=== PATIENT | female | born 1955 | race Caucasian/White ===

== ENCOUNTER 2016-08-28 09:09 | Emergency (ER) | payer OTHER ==
[2016-08-28] MEDS ORDERED: Pantoprazole Inj 40 MG in Normal Saline Flush 10 ML IVP ONE (09:25)
[2016-08-28] MEDS ORDERED: Sodium Chloride 0.9% 1,000 ML PRIMARY IV ONE (09:25)
[2016-08-28] MEDS ORDERED: Prochlorperazine Edisylate Inj 10mg/2ml vial IVP ONE (09:25)
[2016-08-28] MEDS ORDERED: NORMAL SALINE 10 ML SYRINGE FLUSH IVP PRN (09:25)
[2016-08-28] MEDS ORDERED: Belladon/PHENobarbital Elixir 10 ML, Lidocaine Viscous Liquid 2% 15 ML, Mag Hyd/Al Hyd/... PO ONE ×3 (09:26)
[2016-08-28 09:28] VITALS: RESP 12; TEMP 98.8
[2016-08-28 09:40] LABS: BASOPHILS # (AUTO) 0.07 10*3/UL; BASOPHILS % (AUTO) 1.3 % (0-1); EOSINOPHILS % (AUTO) 3.4 % (0-8); HEMATOCRIT 38.5 % (37.0-47.0); HEMOGLOBIN 13.5 g/dL (12.0-16.0); IMM GRAN % (AUTO) 0 % (0-5); IMM GRAN# (AUTO) 0 10*3/UL; LYMPHOCYTES # (AUTO) 1.17 10*3/uL; LYMPHOCYTES % (AUTO) 21.8 % (10-50); MEAN CORPUSCULAR HEMOGLOBIN 32.1 PG (27-31); MEAN CORPUSCULAR HGB CONC 35.1 g/dL (33-37); MEAN PLATELET VOLUME 10.3 FL (7.4-12.2); MONOCYTES # (AUTO) 0.33 10*3/UL (0.3-0.8); MONOCYTES % (AUTO) 6.2 % (5-15); NEUTROPHILS # (AUTO) 3.61 10*3/UL; NEUTROPHILS % (AUTO) 67.3 % (50-80); RDW COEFFICIENT OF VARIATION 12.1 % (11.5-14.5); WHITE BLOOD COUNT 5.36 10^3/uL (4.8-10.8)
[2016-08-28 09:43] LABS: PLATELET MORPHOLOGY COMMENT NORMAL MORPHOLOGY (NORM)
--- NOTE | 2016-08-28 10:04 | PDOC ---
Abdomen/Flank HPI - General Chief Complaint: Abdomen Pain Stated Complaint: right upper quad pain Date Seen by Provider: 08/28/16 Time Seen by Provider: 09:25 Source: POSITIVE: Patient, EMS Exam Limitations: POSITIVE: No limitations Nurse's Notes Reviewed & Considered: Yes - History of Present Illness Initial Comments: The patient is a 61-year-old female who is brought to the emergency department per EMS with complaints of severe abdominal pain. She has a history of recurrent evaluations for epigastric abdominal pain. She has undergone laparoscopic cholecystectomy several weeks ago secondary to biliary dyskinesia. She has however continued to have the same pain intermittently. She has been seen here in the emergency room 3 times since her surgery. She has undergone workup including ultrasound and 2 CT scans. Lab work and imaging has been unremarkable. She does have a history of previous gastritis and H. pylori per surgical note. The patient is noncompliant with medications at home. She did tell nursing staff that she ran out of pain medication 2 days ago. She states that she had onset of pain this morning associated with nausea and vomiting. She was given Zofran and Benadryl in route. She denies fever although she states she may have had some chills earlier. On arrival she is still having pain and is still nauseated although her nausea somewhat better. - Patient Home Medications Home Medications: Home Medications Lisinopril [Prinivil Tab] 40 mg PO DAILY #30 tab 06/28/16 oxyCODONE/APAP 7.5/325 Tab [Percocet 7.5/325 Tab] 1 each PO Q6H PRN #20 tablet 08/05/16 Dicyclomine HCl [Bentyl] 20 mg PO Q8H PRN #10 tablet 08/28/16 Pantoprazole Sodium [Protonix] 40 mg PO BID #60 tablet. 08/28/16 Promethazine HCl [Phenergan] 25 mg PO Q6H PRN #15 tab 08/28/16 - Patient Allergies Allergies/Adverse Reactions: Allergies Allergy/AdvReac Type Severity Reaction Status Date / Time No Known Allergies Allergy Verified 08/28/16 09:15 Past Medical History - heen HEENT History: Hard of Hearing, Dental Disorders, Dentures/Partials Cardiovascular History: Hypertension Additional Cardiovasular History: DOES NOT TAKE HER BLOOD PRESSURE MEDS REGULARLY. Pt reports took bp medication this am. Respiratory History: Denies History Gastrointestinal History: Diverticulitis, Gallbladder Disease Additional Gastrointestinal History: LAST EPISODE 2010. PT HAS BEEN IN ER WITH ABDOMINAL PAIN, N/V FREQUENTLY OVER PAST 2 MONTHS. GB OUT 08/01/16 Genitourinary History: Denies History Endocrine History: Type 2 Diabetes (oral) Additional Endocrine History: HX OF NOT TAKING MEDS Musculoskeletal History: Denies History Prosthesis or Implant: No Neurological History: Denies History Blood Disorders: Denies History Psychiatric History: Denies History History of Sexually Transmitted Diseases: No LMP: 12yrs Cancer History: Denies History In Past Year Been Physically Harmed or Verbally Threatened: No History of MDRO: No History of Other Communicable Diseases: No Tobacco Use: Never Smoker Alcohol Use: Occasionally Substance Use Type: None Previous Surgical History: Yes Type / Date of Surgery: TUBAL LIGATION. Michela Anesthesia Reactions: No Significant Family History: No pertinent family hx Past Medical History Reviewed: Reviewed - No Changes ROS - Limitations ROS Limitations: No Limitations Constitution: REPORTS: Chills. DENIES: Fever Cardiovascular: REPORTS: Blood Pressure Problem (She frequently has very high blood pressure and is noncompliant with blood pressure medication at home). DENIES: Chest Pain, Heart Palpitations, Edema Respiratory: REPORTS: Denies Resp Symptoms Neurological: REPORTS: Denies Neuro Symptoms Gastrointestinal: REPORTS: Abdominal Pain, Nausea, Vomitting, Constipation, Other (She reports poor appetite and reports that her pain worsens with attempts at eating). DENIES: Black Stools, Bloody Stools Genitourinary: REPORTS: Other (She reports decreased urination) Eyes: REPORTS: Denies Symptoms ENT: REPORTS: Denies Symptoms Skin: DENIES: Rash Abdominal/Flank Pain PE - General Appearance General Appearance: POSITIVE: Alert, Cooperative, No Acute Distress, Other (She is moaning in pain) - HEENT HEENT: POSITIVE: Head Inspection Nml, Eyes Inspection Nml, Ears Inspection Nml, Pharynx Inspect. Nml - Neck Neck: POSITIVE: Normal Inspection - Respiratory Respiratory: POSITIVE: No Respiratory Distress, Breath Sounds Normal - Cardiovascular Cardiovascular: POSITIVE: Regular Rate and Rhythm, Heart Sounds Normal Peripheral Pulses: Dorsalis-pedis (R): 2+, Dorsalis-pedis (L): 2+ - Abdomen Abdomen: Soft: (All Quadrants), Normal Bowel Sounds: (All Quadrants), No Guarding: (All Quadrants), No Rebound: (All Quadrants), No Palpabale Mass: (All Quadrants), No Distention: (All Quadrants) Additional Abdominal Details: She does have tenderness in the epigastric region without guarding or rebound tenderness - Skin Skin: POSITIVE: Intact, No Rash - Extremities Extremity: Normal ROM: (All Extremities), Normal Inspection: (All Extremities) Abdomen Progress - Results Reviewed by me Lab Results Reviewed: Yes Lab Results:: Laboratory Results 08/28/16 Range/Units 09:36 WBC 5.36 (4.8-10.8) 10^3/uL RBC 4.20 (4.20-5.40) 10^6/uL Hgb 13.5 (12.0-16.0) g/dL Hct 38.5 (37.0-47.0) % MCV 91.7 (81-99) FL MCH 32.1 H (27-31) PG MCHC 35.1 (33-37) g/dL RDW Std Deviation 39.3 (39-50) fL RDW Coeff of Mohini 12.1 (11.5-14.5) % Plt Count 319 (140-350) 10*3/uL MPV 10.3 (7.4-12.2) FL Immature Gran % (Auto) 0 (0-5) % Neut % (Auto) 67.3 (50-80) % Lymph % (Auto) 21.8 (10-50) % [place] % (Auto) 6.2 (5-15) % Eos % (Auto) 3.4 (0-8) % Baso % (Auto) 1.3 H (0-1) % Immature Gran # (Auto) 0 10*3/UL Neut # (Auto) 3.61 10*3/UL Lymph # (Auto) 1.17 10*3/uL [place] # (Auto) 0.33 (0.3-0.8) 10*3/UL Eos # (Auto) 0.18 10*3/UL Baso # (Auto) 0.07 10*3/UL WBC Morphology Comment Normal morphology (NORM) Plt Morphology Comment Normal morphology (NORM) RBC Morph Comment Normal morphology (NORM) Sodium 133 L (135-145) meq/L Potassium 3.7 L (3.8-5.2) meq/L Chloride 99 (98-112) meq/L Carbon Dioxide 21 L (23-33) meq/L Anion Gap 13 (5-20) BUN 12 (7-22) mg/dL Creatinine 1.2 (0.50-1.20) mg/dL Estimated GFR 46 (>60 ml/min/1.73m(2)) BUN/Creatinine Ratio 10.00 (6-20) Glucose 153 H (78-110) mg/dL Calculated Osmolality 278.0 (267-292) mOsm/kg Calcium 9.5 (8.7-10.7) mg/dL Total Bilirubin 1.5 H (0.3-1.2) mg/dL AST 15 (8-39) IU/L ALT 41 (9-52) IU/L Alkaline Phosphatase 75 (38-126) IU/L C-Reactive Protein 0.5 (0.0-0.9) mg/dL Total Protein 6.7 (6.1-8.0) g/dL Albumin 3.8 (3.5-4.8) g/dL Globulin 2.8 (2.50-4.10) g/dL Albumin/Globulin Ratio 1.30 (1.3-2.0) mg/g Amylase < 30 L (30-110) U/L Lipase 96 (23-300) IU/L - Patient's Progress MDM / ED Course: The patient reported continued nausea and epigastric pain on arrival. She has had multiple evaluations for this issue including several recent CT scans and ultrasound. She also recently underwent laparoscopic cholecystectomy. She does have a history of H. pylori gastritis. In addition there has been some concern about narcotic usage. Here the patient was given a GI cocktail, 5 mg of Compazine IV and Protonix 40 mg IV. Her pain was significantly improved and she was resting comfortably. Results of current lab work were discussed and are unremarkable. The patient has had CT scan of the abdomen 2 as well as ultrasound since her laparoscopic cholecystectomy and no further imaging was ordered today as her labs are normal and her clinical presentation is similar to the past presentations. At this point her pain may be secondary to gastritis or ulcer. She does have a history of H. pylori. She is advised to have a stool test for H. pylori antigen to reevaluate this. In addition she was started on Protonix 40 mg twice a day. She has been prescribed antiacid medications previously however it is unclear if she is taking these regularly, she did not list this as a medication she is currently taking. In addition she was given Bentyl as needed for pain/spasm and Phenergan as needed for nausea. She was advised that it would be advisable not to continue any narcotic pain medications as this may be contributing to her symptoms as well. She is advised return to the emergency room she develops increased pain or vomiting, fever, any worsening or change in symptoms. She'll follow-up with primary care in 2-3 days. She was advised to obtain a medication office workforce planner to help keep track of her home medications. - Consult Counseled: POSITIVE: Patient, RE: Lab Results, RE: DX, RE: Need for F/U Patient Care Time - Estimated PCT Patient Care Time (In Minutes): 35 Vital Signs - Recent Vital Signs Vital Signs: Vital Signs (Last 8 hours) Temp Pulse Resp BP Pulse Ox 08/28/16 09:22 98.8 F 90 12 189/103 97 - VS Reviewed Vital Signs Reviewed: Yes Discharge Clinical Impression: Epigastric abdominal pain, Nausea and vomiting, Gastritis Condition: Stable Prescriptions / Orders: Dicyclomine HCl [Bentyl] 20 mg PO Q8H PRN #10 tablet PRN Reason: Abdominal Cramps / Pain Promethazine HCl [Phenergan] 25 mg PO Q6H PRN #15 tab PRN Reason: Nausea / Vomiting Pantoprazole Sodium [Protonix] 40 mg PO BID #60 tablet. Patient Instructions Given at Discharge: Gastritis (ED), Acute Nausea and Vomiting (ED), Acute Abdominal Pain (ED) Additional Instructions: Protonix 40 mg twice a day. Bentyl 20 mg every 6-8 hours as needed for abdominal pain/spasm. Phenergan 25 mg every 6 hours as needed for nausea or vomiting. Continue your blood pressure and diabetes medications as prescribed. It is important to take all of your medications as recommended. Recommend obtaining a medication office workforce planner to help organize her medications. A stool study has been ordered to test for H. pylori which is an infection in your stomach that you have had previously that can cause ulcers and abdominal pain. This will need to be taken to the lab. Return to the emergency room if increased vomiting or dehydration, increased abdominal pain, fever, any worsening or change in symptoms. Recommend follow-up with primary care in 2-3 days. Follow Up With: FIGUEROA FAJARDO [Primary Care Provider] -
[2016-08-28 10:16] LABS: ASPARTATE AMINO TRANSFERASE 15 IU/L (8-39); BILIRUBIN,TOTAL 1.5 mg/dL (0.3-1.2); BLOOD UREA NITROGEN 12 mg/dL (7-22); C-REACTIVE PROTEIN 0.5 mg/dL (0.0-0.9); CALCIUM 9.5 mg/dL (8.7-10.7); CHLORIDE 99 meq/L (98-112); CREATININE 1.2 mg/dL (0.50-1.20); EST GLOMERULAR FILTRATION 46 (>60 ml/min/1.73m(2)); GLUCOSE 153 mg/dL (78-110); POTASSIUM 3.7 meq/L (3.8-5.2); SODIUM 133 meq/L (135-145); TOTAL PROTEIN 6.7 g/dL (6.1-8.0)
[2016-08-28 10:18] LABS: AMYLASE < 30 U/L (30-110)
== END 2016-08-28 11:45 | disposition home or self-care (01) ==
LOC: ER 09:09
DX: K29.70 Gastritis, unspecified, without bleeding (principal); R10.13 Epigastric pain; R11.2 Nausea with vomiting, unspecified
CPT/HCPCS: 36415; 80053; 82150; 83690; 85025; 86140; 96374; 96375; 99283; J0780; J3490

== ENCOUNTER 2016-09-30 08:30 | Emergency (ER) | payer OTHER ==
[2016-09-30] MEDS ORDERED: Pantoprazole Inj 40 MG in Normal Saline Flush 10 ML IVP ONE (08:59)
[2016-09-30] MEDS ORDERED: NORMAL SALINE 10 ML SYRINGE FLUSH IVP PRN (08:59)
[2016-09-30] MEDS ORDERED: Sodium Chloride 0.9% 1,000 ML PRIMARY IV ONE (08:59)
[2016-09-30] MEDS ORDERED: LISINOPRIL 10 MG TABLET PO ONE (09:02)
[2016-09-30 09:09] LABS: IMM GRAN % (AUTO) 0.1 % (0-5); IMM GRAN# (AUTO) 0.01 10*3/UL; RDW COEFFICIENT OF VARIATION 13.1 % (11.5-14.5)
[2016-09-30 09:11] LABS: BASOPHILS # (AUTO) 0.11 10*3/UL; BASOPHILS % (AUTO) 1.6 % (0-1); HEMATOCRIT 42.3 % (37.0-47.0); HEMOGLOBIN 15.2 g/dL (12.0-16.0); LYMPHOCYTES % (AUTO) 20.8 % (10-50); MEAN CORPUSCULAR HEMOGLOBIN 32.9 PG (27-31); MEAN CORPUSCULAR HGB CONC 35.9 g/dL (33-37); MEAN PLATELET VOLUME 11.3 FL (7.4-12.2); MONOCYTES # (AUTO) 0.32 10*3/UL (0.3-0.8); MONOCYTES % (AUTO) 4.8 % (5-15); NEUTROPHILS # (AUTO) 4.68 10*3/UL; NEUTROPHILS % (AUTO) 69.7 % (50-80); RED BLOOD COUNT 4.62 10^6/uL (4.20-5.40); WHITE BLOOD COUNT 6.72 10^3/uL (4.8-10.8)
[2016-09-30 09:14] LABS: PLATELET MORPHOLOGY COMMENT NORMAL MORPHOLOGY (NORM)
[2016-09-30 09:17] LABS: BILIRUBIN,TOTAL 1.1 mg/dL (0.3-1.2); BUN/CREATININE RATIO 9.23 (6-20); C-REACTIVE PROTEIN 0.8 mg/dL (0.0-0.9); CALCIUM 9.7 mg/dL (8.7-10.7); CREATININE 1.3 mg/dL (0.50-1.20); MAGNESIUM 1.6 mg/dL (1.6-2.4); POTASSIUM 3.3 meq/L (3.8-5.2); TOTAL PROTEIN 7.4 g/dL (6.1-8.0)
--- NOTE | 2016-09-30 09:19 | PDOC ---
Abdomen/Flank HPI - General Chief Complaint: Abdomen Pain Stated Complaint: ABDOMINAL PAIN, NAUSEA, VOMITING x2 DAYS Date Seen by Provider: 09/30/16 Time Seen by Provider: 08:50 Source: POSITIVE: Patient, EMS Exam Limitations: POSITIVE: No limitations Nurse's Notes Reviewed & Considered: Yes EMS Report Reviewed & Considered: Verbal - History of Present Illness Initial Comments: The patient is a 61-year-old female who presents to the emergency department with complaints of abdominal pain and cramping. She has a history of intermittent abdominal pain and cramping which has been ongoing for at least the past 6 months. She has had multiple evaluations and underwent cholecystectomy for possible gallbladder dysfunction. She states that this morning she had onset of increased abdominal pain and cramping. She reports that recently she has had hard stool and increased pain with trying to have a bowel movement. She denies any fevers or chills or urinary symptoms. She has had associated nausea and vomiting this morning. She subsequently called for the ambulance bring her here to the hospital. She received morphine 2 in route and is feeling better currently. She states that she has not taken her blood pressure or diabetes medication for over a week. She states that she just forgot. She has not had any follow-up with gastroenterology or surgery since her last visit here to the emergency room. - Patient Home Medications Home Medications: Home Medications Lisinopril [Prinivil Tab] 40 mg PO DAILY #30 tab 06/28/16 Dicyclomine HCl [Bentyl] 20 mg PO Q8H PRN #10 tablet 08/28/16 Pantoprazole Sodium [Protonix] 40 mg PO BID #60 tablet. 08/28/16 Promethazine HCl [Phenergan] 25 mg PO Q6H PRN #15 tab 08/28/16 Ondansetron Odt [Zofran Odt] 8 mg PO DAILY PRN #10 tab.rapdis 09/30/16 Polyethylene Glycol 3350 [Miralax] 17 gm PO DAILY PRN #1 bottle 09/30/16 glyBURIDE Tab [Micronase Tab] 5 mg PO DAILY 09/30/16 - Patient Allergies Allergies/Adverse Reactions: Allergies Allergy/AdvReac Type Severity Reaction Status Date / Time No Known Allergies Allergy Verified 09/30/16 09:04 Past Medical History - heen HEENT History: Hard of Hearing, Dental Disorders, Dentures/Partials Cardiovascular History: Hypertension Additional Cardiovasular History: DOES NOT TAKE HER BLOOD PRESSURE MEDS REGULARLY. Pt reports took bp medication this am. Respiratory History: Denies History Gastrointestinal History: Diverticulitis, Gallbladder Disease Additional Gastrointestinal History: LAST EPISODE 2010. PT HAS BEEN IN ER WITH ABDOMINAL PAIN, N/V FREQUENTLY OVER PAST 2 MONTHS. GB OUT 08/01/16 Genitourinary History: Denies History Endocrine History: Type 2 Diabetes (oral) Additional Endocrine History: HX OF NOT TAKING MEDS Musculoskeletal History: Denies History Prosthesis or Implant: No Neurological History: Denies History Blood Disorders: Denies History Psychiatric History: Denies History History of Sexually Transmitted Diseases: No Cancer History: Denies History History of MDRO: No History of Other Communicable Diseases: No Alcohol Use: Occasionally Substance Use Type: None Previous Surgical History: Yes Type / Date of Surgery: TUBAL LIGATION. Michela Anesthesia Reactions: No Significant Family History: No pertinent family hx Past Medical History Reviewed: Reviewed - No Changes ROS - Limitations ROS Limitations: No Limitations Constitution: DENIES: Chills, Fever Cardiovascular: DENIES: Chest Pain, Heart Palpitations Respiratory: DENIES: Shortness Of Breath Neurological: REPORTS: Denies Neuro Symptoms Gastrointestinal: REPORTS: Abdominal Pain, Nausea, Vomitting, Constipation Endocrine: REPORTS: Denies Symptoms Musculoskeletal: REPORTS: Denies MS Symptoms Genitourinary: REPORTS: Denies Symptoms Eyes: REPORTS: Denies Symptoms ENT: REPORTS: Denies Symptoms Skin: DENIES: Rash Abdominal/Flank Pain PE - General Appearance General Appearance: POSITIVE: Alert, Cooperative, No Acute Distress - HEENT HEENT: POSITIVE: Head Inspection Nml, Eyes Inspection Nml, Ears Inspection Nml, Pharynx Inspect. Nml, Dry Mucous Membranes - Neck Neck: POSITIVE: Normal Inspection. NEGATIVE: Lymphadenopathy - Respiratory Respiratory: POSITIVE: No Respiratory Distress, Breath Sounds Normal - Cardiovascular Cardiovascular: POSITIVE: Regular Rate and Rhythm, Heart Sounds Normal - Abdomen Abdomen: Soft: (All Quadrants), Denies Tenderness: (All Quadrants), No Distention: (All Quadrants) - Skin Skin: POSITIVE: Intact, No Rash - Extremities Extremity: Normal ROM: (All Extremities), Normal Inspection: (All Extremities) - Neurological Neurological: POSITIVE: Other (No focal neurologic deficits) Abdomen Progress - Results Reviewed by me Xrays/CTs/US Reviewed by me: Yes Discussed with Radiologist: Yes Radiology Findings: Abdominal x-ray shows nonobstructive bowel gas pattern, no acute findings per radiologist. Lab Results Reviewed: Yes Lab Results:: Laboratory Results 09/30/16 09/30/16 Range/Units 07:50 10:14 WBC 6.72 (4.8-10.8) 10^3/uL RBC 4.62 (4.20-5.40) 10^6/uL Hgb 15.2 (12.0-16.0) g/dL Hct 42.3 (37.0-47.0) % MCV 91.6 (81-99) FL MCH 32.9 H (27-31) PG MCHC 35.9 (33-37) g/dL RDW Std Deviation 42.9 (39-50) fL RDW Coeff of Mohini 13.1 (11.5-14.5) % Plt Count 296 (140-350) 10*3/uL MPV 11.3 (7.4-12.2) FL Immature Gran % (Auto) 0.1 (0-5) % Neut % (Auto) 69.7 (50-80) % Lymph % (Auto) 20.8 (10-50) % [place] % (Auto) 4.8 L (5-15) % Eos % (Auto) 3.0 (0-8) % Baso % (Auto) 1.6 H (0-1) % Immature Gran # (Auto) 0.01 10*3/UL Neut # (Auto) 4.68 10*3/UL Lymph # (Auto) 1.40 10*3/uL [place] # (Auto) 0.32 (0.3-0.8) 10*3/UL Eos # (Auto) 0.20 10*3/UL Baso # (Auto) 0.11 10*3/UL WBC Morphology Comment Normal morphology (NORM) Plt Morphology Comment Normal morphology (NORM) RBC Morph Comment Normal morphology (NORM) Sodium 135 (135-145) meq/L Potassium 3.3 L (3.8-5.2) meq/L Chloride 95 L (98-112) meq/L Carbon Dioxide 27 (23-33) meq/L Anion Gap 13 (5-20) BUN 12 (7-22) mg/dL Creatinine 1.3 H (0.50-1.20) mg/dL Estimated GFR 42 (>60 ml/min/1.73m(2)) BUN/Creatinine Ratio 9.23 (6-20) Glucose 141 H (78-110) mg/dL Calculated Osmolality 281.0 (267-292) mOsm/kg Calcium 9.7 (8.7-10.7) mg/dL Magnesium 1.6 (1.6-2.4) mg/dL Total Bilirubin 1.1 (0.3-1.2) mg/dL AST 24 (8-39) IU/L ALT 31 (9-52) IU/L Alkaline Phosphatase 79 (38-126) IU/L C-Reactive Protein 0.8 (0.0-0.9) mg/dL Total Protein 7.4 (6.1-8.0) g/dL Albumin 4.2 (3.5-4.8) g/dL Globulin 3.1 (2.50-4.10) g/dL Albumin/Globulin Ratio 1.30 (1.3-2.0) mg/g Amylase 52 (30-110) U/L Lipase 85 (23-300) IU/L Ur Collection Type Clean catch urine Urine Color Yellow Urine Clarity Clear (CLEAR) Urine pH 8.5 (5.0-8.5) Ur Specific [place]vin 1.015 (1.005-1.030) Urine Protein 30 (NEG) mg/dl Urine Glucose (UA) Negative (NEG) mg/dL Urine Ketones 15 (NEG) Urine Occult Blood Negative (NEG) Urine Nitrate Negative (NEG) Urine Bilirubin Small (NEG) Urine Urobilinogen 1.0 (0.2) EU/dL Ur Leukocyte Esterase Negative (NEG) Urine RBC 0-1 (NONE) /hpf Urine WBC 0 (NONE) Ur Squamous Epith Cells Few (NONE) Ur Renal Epithelial Cell None (NONE) Urine Crystals None Urine Bacteria None (NONE) Urine Casts Rare (NONE) Urine Mucus None (NONE) Urine Trichomonas None (NONE) Urine Yeast None (NONE) Ur Culture Indicated? Culture not set - Patient's Progress MDM / ED Course: The patient's pain had improved by the time she arrived here in the emergency room after administration of morphine in route. Her blood pressure was elevated on arrival and she received lisinopril 20 mg by mouth. Her blood pressure improved. She had no further emesis here. Review of labs revealed mild hypokalemia, normal white count and normal CRP. Her urinalysis does not show any evidence of infection. Her presentation today is very similar to presentations in the past. I asked the patient if she was taking her Protonix and she states that she has been in that the last time she took this was yesterday. She states she has not been taking her blood pressure or diabetes medication and she did not try taking any anti-emetics her Bentyl at home. Overall I think noncompliance contributes to these episodes to some degree. This was discussed with the patient regarding the importance of taking her medications regularly. At this point there did not appear to be any reason to pursue any further imaging as she has had multiple CAT scans previously. She will be discharged home and was given prescriptions for MiraLAX as needed for constipation and Zofran sublingual as needed for nausea and vomiting. She is advised to continue her Protonix. She was advised of the importance of taking her blood pressure medication and monitoring her blood sugars if she is not going to take her diabetes medication. She also has Bentyl which she can take as needed for abdominal cramping. She'll follow-up with her primary care provider and was encouraged to find out about her GI specialist referral which apparently has been initiated. She will return to the emergency room if increased pain, vomiting or dehydration, fever, any worsening or change in symptoms. - Consult Counseled: POSITIVE: Patient, RE: Lab Results, RE: Radiology Results, RE: DX, RE : Need for F/U Patient Care Time - Estimated PCT Patient Care Time (In Minutes): 35 Vital Signs - Recent Vital Signs Vital Signs: Vital Signs (Last 8 hours) Temp Pulse Resp BP Pulse Ox 09/30/16 08:30 98.6 F 90 17 178/116 98 - VS Reviewed Vital Signs Reviewed: Yes Discharge Clinical Impression: Nausea and vomiting, Abdominal pain, Constipation, HTN (hypertension) Condition: Stable Prescriptions / Orders: Polyethylene Glycol 3350 [Miralax] 17 gm PO DAILY PRN #1 bottle PRN Reason: Constipation Ondansetron Odt [Zofran Odt] 8 mg PO DAILY PRN #10 tab.rapdis PRN Reason: Nausea / Vomiting Patient Instructions Given at Discharge: Constipation (ED), Acute Nausea and Vomiting (ED), Acute Abdominal Pain (ED), Hypertension (ED) Additional Instructions: Recommend MiraLAX 17 g mixed in 1 to glass of juice daily. Increase fluid intake. Continue Protonix twice a day which is the an acid medicine. Zofran 8 mg every 4-6 hours as needed for nausea which is a melt tab for under your tongue. Continue Bentyl as needed for abdominal pain or cramping. It is also important to remember to take your blood pressure medication as your blood pressure was significantly elevated when he arrived in the emergency room. Return to the emergency room if increased pain, vomiting or dehydration, fever, any worsening or change in symptoms. Recommend follow-up with primary care. Recommend GI specialist referral. Follow Up With: FIGUEROA FAJARDO [Primary Care Provider] -
[2016-09-30 09:38] VITALS: RESP 17; TEMP 98.6
[2016-09-30 10:28] LABS: BILIRUBIN,URINE SMALL (NEG); CLARITY,URINE CLEAR (CLEAR); GLUCOSE, URINE (UA) NEGATIVE (NEG); LEUKOCYTE ESTERASE ,URINE NEGATIVE (NEG); NITRATE,URINE NEGATIVE (NEG); OCCULT BLOOD,URINE NEGATIVE (NEG); PH,URINE 8.5 (5.0-8.5); PROTEIN,URINE 30 mg/dl (NEG); URINE SAMPLE TYPE CLEAN CATCH URINE
[2016-09-30 10:36] LABS: RBC,URINE 0-1 /hpf; SQUAMOUS EPITHELIAL CELL,UR FEW; WBC,URINE 0
--- NOTE | 2016-09-30 10:42 | DI ---
XR ABDOMEN KUB UPRIGHT,09/30/2016 9:00 AM: Clinical History: Abdominal pain. Previous Exam: None at this facility. Findings: 3 frontal radiographs of the abdomen and pelvis are obtained, and demonstrate a nonobstructive bowel gas pattern. Postsurgical changes are seen consistent with cholecystectomy. There is no subdiaphragmatic free air. There are some degenerative changes involving the left hip joint. Degenerative changes of the lower lumbar spine are also noted. Impression: 1. Mild degenerative changes of the lumbar spine. 2. No acute intra-abdominal pathology. 3. Degenerative changes of the left hip.
[2016-09-30] MEDS ORDERED: Prochlorperazine Edisylate Inj 10mg/2ml vial IVP ONE (13:11)
== END 2016-09-30 13:45 | disposition home or self-care (01) ==
LOC: ER 08:30
DX: K59.00 Constipation, unspecified (principal); R11.2 Nausea with vomiting, unspecified; I10 Essential (primary) hypertension; E11.9 Type 2 diabetes mellitus without complications; R10.84 Generalized abdominal pain
CPT/HCPCS: 74020; 80053; 81001; 81003; 82150; 82948; 83690; 83735; 85025; 86140; 96361; 96374; 96375; 99283; J0780; J3490

== ENCOUNTER 2016-10-27 05:30 | Emergency (ER) | payer OTHER ==
[2016-10-27] MEDS ORDERED: ONDANSETRON 4 MG/2 ML VIAL IVP ONE (05:55)
[2016-10-27] MEDS ORDERED: NORMAL SALINE 10 ML SYRINGE FLUSH IVP PRN (05:55)
[2016-10-27] MEDS ORDERED: Sodium Chloride 0.9% 1,000 ML PRIMARY IV ONE (05:55)
[2016-10-27] MEDS ORDERED: HYDROmorphone 2 MG/1 ML IVP ONE (05:58)
[2016-10-27 06:05] LABS: BASOPHILS # (AUTO) 0.11 10*3/UL; BASOPHILS % (AUTO) 1.5 % (0-1); EOSINOPHILS % (AUTO) 5.9 % (0-8); HEMATOCRIT 40.7 % (37.0-47.0); HEMOGLOBIN 14.1 g/dL (12.0-16.0); IMM GRAN % (AUTO) 0.1 % (0-5); IMM GRAN# (AUTO) 0.01 10*3/UL; LYMPHOCYTES # (AUTO) 1.26 10*3/uL; LYMPHOCYTES % (AUTO) 17.7 % (10-50); MEAN CORPUSCULAR HGB CONC 34.6 g/dL (33-37); MEAN PLATELET VOLUME 10.8 FL (7.4-12.2); MONOCYTES # (AUTO) 0.22 10*3/UL (0.3-0.8); MONOCYTES % (AUTO) 3.1 % (5-15); NEUTROPHILS % (AUTO) 71.7 % (50-80); RDW COEFFICIENT OF VARIATION 12.6 % (11.5-14.5); RED BLOOD COUNT 4.41 10^6/uL (4.20-5.40); WHITE BLOOD COUNT 7.12 10^3/uL (4.8-10.8)
[2016-10-27 06:06] LABS: PLATELET MORPHOLOGY COMMENT NORMAL MORPHOLOGY (NORM)
[2016-10-27 06:11] LABS: BILIRUBIN,TOTAL 0.8 mg/dL (0.3-1.2); CALCIUM 10.2 mg/dL (8.7-10.7); CREATININE 1.4 mg/dL (0.50-1.20); POTASSIUM 4.9 meq/L (3.8-5.2); TOTAL PROTEIN 7.7 g/dL (6.1-8.0)
[2016-10-27 06:12] LABS: AMYLASE 44 U/L (30-110)
[2016-10-27 06:13] LABS: SERUM ALCOHOL < 10 mg/dL (0-10)
[2016-10-27 06:26] LABS: BILIRUBIN,URINE NEGATIVE (NEG); CLARITY,URINE CLEAR (CLEAR); GLUCOSE, URINE (UA) NEGATIVE (NEG); LEUKOCYTE ESTERASE ,URINE NEGATIVE (NEG); NITRATE,URINE NEGATIVE (NEG); OCCULT BLOOD,URINE NEGATIVE (NEG); PROTEIN,URINE TRACE mg/dl (NEG); UROBILINOGEN,URINE 0.2 EU/dL (0.2)
[2016-10-27 06:27] LABS: URINE SAMPLE TYPE CLEAN CATCH URINE
[2016-10-27 07:23] VITALS: TEMP 98.8
[2016-10-27 08:29] VITALS: RESP 16
--- NOTE | 2016-10-27 08:32 | PDOC ---
Abdomen/Flank HPI - General Chief Complaint: Nausea / Vomiting / Diarrhea Stated Complaint: Nausea/vomitting Date Seen by Provider: 10/27/16 Time Seen by Provider: 05:40 Source: POSITIVE: Patient, EMS Exam Limitations: POSITIVE: No limitations Nurse's Notes Reviewed & Considered: Yes EMS Report Reviewed & Considered: Verbal - History of Present Illness Initial Comments: The patient is a 61-year-old female. She states that around 8 PM she developed upper abdominal pain with associated vomiting and diarrhea. Patient underwent a laparoscopic cholecystectomy in mid July and since that time she has been having intermittent episodes of upper abdominal pain. She states she has had this same type of episode 6 or 7 times since her cholecystectomy. She has had CT scans several times since her cholecystectomy with no pathology found. No fevers or chills. No melena hematochezia, hematemesis, dysuria or hematuria. Body Location Affected: REPORTS: Abdomen Timing: REPORTS: Abrupt Duration: <24 hours (Approximately 9 hours) Severity: Moderate Quality: REPORTS: "Pain" Abdominal Pain Onset Location: REPORTS: Epigastric Abdominal Pain Radiation: REPORTS: No radiation Context: REPORTS: None Modifying Factors: improves with: Nothing Associated Symptoms: REPORTS: Nausea, Vomiting, Diarrhea. DENIES: Denies symptoms, Back pain, Bloody Emesis, Chest pain, Coffee Grounds Emesis, Chills, Diaphoresis, Fever, Fatigue, Headache, Heartburn, Loss of Appetite, Rash, Shortness of breath, Swelling/mass in abdomen, Syncope, Testicular Pain, Weakness, Grossly Bloody Diarrhea, Constipation, Dysuria, Incontinent Stool, Incontinent Urine, Mucous Diarrhea, Difficulty Walking, Dizziness, Light Headedness, Numbness, Other Similar Symptoms Previously: Yes (several episodes since July; see above and see past emergency room) Recent Care Received: REPORTS: Denies Any Prior Injuries Related to Current Complaint?: No - Patient Home Medications Home Medications: Home Medications Lisinopril [Prinivil Tab] 40 mg PO DAILY #30 tab 06/28/16 Dicyclomine HCl [Bentyl] 20 mg PO Q8H PRN #10 tablet 08/28/16 Pantoprazole Sodium [Protonix] 40 mg PO BID #60 tablet. 08/28/16 Promethazine HCl [Phenergan] 25 mg PO Q6H PRN #15 tab 08/28/16 Ondansetron Odt [Zofran Odt] 8 mg PO DAILY PRN #10 tab.rapdis 09/30/16 Polyethylene Glycol 3350 [Miralax] 17 gm PO DAILY PRN #1 bottle 09/30/16 glyBURIDE Tab [Micronase Tab] 5 mg PO DAILY 09/30/16 - Patient Allergies Allergies/Adverse Reactions: Allergies Allergy/AdvReac Type Severity Reaction Status Date / Time No Known Allergies Allergy Verified 10/27/16 05:57 Past Medical History - heen HEENT History: Hard of Hearing, Dental Disorders, Dentures/Partials Cardiovascular History: Hypertension Additional Cardiovasular History: DOES NOT TAKE HER BLOOD PRESSURE MEDS REGULARLY. Pt reports took bp medication this am. Respiratory History: Denies History Gastrointestinal History: Diverticulitis, Gallbladder Disease Additional Gastrointestinal History: LAST EPISODE 2010. PT HAS BEEN IN ER WITH ABDOMINAL PAIN, N/V FREQUENTLY OVER PAST 2 MONTHS. GB OUT 08/01/16 Genitourinary History: Denies History Endocrine History: Type 2 Diabetes (oral) Additional Endocrine History: HX OF NOT TAKING MEDS Musculoskeletal History: Denies History Prosthesis or Implant: No Neurological History: Denies History Blood Disorders: Denies History Psychiatric History: Denies History History of Sexually Transmitted Diseases: No Cancer History: Denies History In Past Year Been Physically Harmed or Verbally Threatened: No History of MDRO: No History of Other Communicable Diseases: No Tobacco Use: Current Every Day Smoker Alcohol Use: Occasionally Substance Use Type: None Previous Surgical History: Yes Type / Date of Surgery: TUBAL LIGATION. Michela Anesthesia Reactions: No Malignant Hyperthermia: No Significant Family History: No pertinent family hx Past Medical History Reviewed: Reviewed - No Changes ROS - Limitations ROS Limitations: No Limitations Constitution: REPORTS: Denies Symptoms Cardiovascular: REPORTS: Denies Cardiac Symptoms Respiratory: REPORTS: Denies Resp Symptoms Neurological: REPORTS: Denies Neuro Symptoms Gastrointestinal: REPORTS: Abdominal Pain, Nausea, Vomitting, Diarrhea Endocrine: REPORTS: Denies Symptoms Musculoskeletal: REPORTS: Denies MS Symptoms Genitourinary: REPORTS: Denies Symptoms Eyes: REPORTS: Denies Symptoms ENT: REPORTS: Denies Symptoms Skin: REPORTS: Denies Skin Symptoms Lympathic: REPORTS: Denies Lympathic Symptoms Immunologic: POSITIVE: Denies Symptoms Psychiatric: POSITIVE: Anxiety Abdominal/Flank Pain PE - General Appearance General Appearance: POSITIVE: Alert, Cooperative, No Acute Distress, No Evidence of Trauma, Anxious - HEENT HEENT: POSITIVE: Head Inspection Nml, Eyes Inspection Nml, Ears Inspection Nml, Nose Inspection Nml, Oral/Dental Inspect. Nml, Pharynx Inspect. Nml, PERRL, EOMI - Neck Neck: POSITIVE: Normal Inspection, No Apparent Injury - Respiratory Respiratory: POSITIVE: No Respiratory Distress, Breath Sounds Normal, Chest Non- Tender - Cardiovascular Cardiovascular: POSITIVE: Regular Rate and Rhythm, Heart Sounds Normal, Equal Pulses, Strong Pulses Peripheral Pulses: Radial (R): 2+, Radial (L): 2+ - Chest Chest: POSITIVE: Non Tender - Abdomen Abdomen: Soft: (All Quadrants), Normal Bowel Sounds: (All Quadrants), No Splenomegaly: (All Quadrants), No Hepatomegaly: (All Quadrants), No Guarding: ( All Quadrants), No Rebound: (All Quadrants), No Palpable Pulse: (All Quadrants) , No Palpabale Mass: (All Quadrants), No Distention: (All Quadrants), No Rigidity: (All Quadrants), Tenderness Noted: (RUQ), (LUQ), (RLQ), (LLQ) Additional Abdominal Details: Abdominal examination shows bowel sounds to be active. No masses or organomegaly or rebound. Patient complains of discomfort on palpation anywhere over the abdomen, especially the upper abdomen bilaterally. No distention. Patient quite anxious. - Back Back: POSITIVE: Normal Inspection. 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 As Tested, Motor Normal, Sensation Normal, 5, 6 - Psychological Psychiatric: POSITIVE: Anxious Images - Complete Complete: 1 - Area of described discomfort Abdomen Progress - Results Reviewed by me Lab Results Reviewed: Yes (all normal) Lab Results:: Laboratory Results 10/27/16 10/27/16 Range/Units 05:30 06:21 WBC 7.12 (4.8-10.8) 10^3/uL RBC 4.41 (4.20-5.40) 10^6/uL Hgb 14.1 (12.0-16.0) g/dL Hct 40.7 (37.0-47.0) % MCV 92.3 (81-99) FL MCH 32.0 H (27-31) PG MCHC 34.6 (33-37) g/dL RDW Std Deviation 41.8 (39-50) fL RDW Coeff of Mohini 12.6 (11.5-14.5) % Plt Count 358 H (140-350) 10*3/uL MPV 10.8 (7.4-12.2) FL Immature Gran % (Auto) 0.1 (0-5) % Neut % (Auto) 71.7 (50-80) % Lymph % (Auto) 17.7 (10-50) % [place] % (Auto) 3.1 L (5-15) % Eos % (Auto) 5.9 (0-8) % Baso % (Auto) 1.5 H (0-1) % Immature Gran # (Auto) 0.01 10*3/UL Neut # (Auto) 5.10 10*3/UL Lymph # (Auto) 1.26 10*3/uL [place] # (Auto) 0.22 L (0.3-0.8) 10*3/UL Eos # (Auto) 0.42 10*3/UL Baso # (Auto) 0.11 10*3/UL WBC Morphology Comment Normal morphology (NORM) Plt Morphology Comment Normal morphology (NORM) RBC Morph Comment Normal morphology (NORM) Sodium 134 L (135-145) meq/L Potassium 4.9 (3.8-5.2) meq/L Chloride 101 (98-112) meq/L Carbon Dioxide 23 (23-33) meq/L Anion Gap 10 (5-20) BUN 28 H (7-22) mg/dL Creatinine 1.4 H (0.50-1.20) mg/dL Estimated GFR 38 (>60 ml/min/1.73m(2)) BUN/Creatinine Ratio 20.00 (6-20) Glucose 179 H (78-110) mg/dL Calculated Osmolality 287.0 (267-292) mOsm/kg Calcium 10.2 (8.7-10.7) mg/dL Total Bilirubin 0.8 (0.3-1.2) mg/dL AST 29 (8-39) IU/L ALT 23 (9-52) IU/L Alkaline Phosphatase 98 (38-126) IU/L Total Protein 7.7 (6.1-8.0) g/dL Albumin 4.3 (3.5-4.8) g/dL Globulin 3.5 (2.50-4.10) g/dL Albumin/Globulin Ratio 1.20 L (1.3-2.0) mg/g Amylase 44 (30-110) U/L Lipase 157 (23-300) IU/L Ur Collection Type Clean catch urine Urine Color Yellow Urine Clarity Clear (CLEAR) Urine pH 6.0 (5.0-8.5) Ur Specific [place] 1.020 (1.005-1.030) Urine Protein Trace (NEG) mg/dl Urine Glucose (UA) Negative (NEG) mg/dL Urine Ketones Negative (NEG) Urine Occult Blood Negative (NEG) Urine Nitrate Negative (NEG) Urine Bilirubin Negative (NEG) Urine Urobilinogen 0.2 (0.2) EU/dL Ur Leukocyte Esterase Negative (NEG) Ur Culture Indicated? Culture not set Serum Alcohol < 10 (0-10) mg/dL - Patient's Progress Pain Medication Addressed: POSITIVE: Yes (Patient given Dilaudid, 2 mg, with complete resolution of her discomfort; patient asymptomatic on discharge.) School/Work Release Addressed: POSITIVE: Not Applicable Re-examine Time: 07:20 Re-Examine Comment: Patient given a liter of normal saline, 4 mg of Zofran IV and 2 mg of Dilaudid IV, with complete resolution of her symptoms and pain. No vomiting or diarrhea while she was observed in the emergency room. Status: POSITIVE: Improved, Re-Examined (Asymptomatic on discharge) - Consult Counseled: POSITIVE: Patient, RE: Lab Results, RE: DX, RE: Need for F/U Patient Care Time - Estimated PCT Patient Care Time (In Minutes): 60 Vital Signs - Recent Vital Signs Vital Signs: Vital Signs (Last 8 hours) Temp Pulse Resp BP Pulse Ox 10/27/16 05:30 98.8 F 104 H 22 171/109 100 - VS Reviewed Vital Signs Reviewed: Yes Discharge Clinical Impression: Nausea and vomiting, Abdominal pain Discharge Disposition: Discharged to Home Condition: Stable Patient Instructions Given at Discharge: Acute Nausea and Vomiting (ED), Chronic Abdominal Pain (ED) Additional Instructions: Clear liquid diet for 12 hours. Follow-up with your primary care provider. Return here anytime if condition worsens. Follow Up With: BIGG OCHOA [Primary Care Provider] - (Follow-up with your primary care provider. Return as necessary.)
== END 2016-10-27 08:20 | disposition home or self-care (01) ==
LOC: ER 05:30
DX: R11.2 Nausea with vomiting, unspecified (principal); R19.7 Diarrhea, unspecified; R10.13 Epigastric pain
CPT/HCPCS: 80053; 80320; 81003; 82150; 83690; 85025; 96361; 96374; 96375; 99283; J1170; J2405

== ENCOUNTER 2016-10-29 07:07 | Emergency (ER) | payer OTHER ==
[2016-10-29 07:24] VITALS: RESP 16; TEMP 99.3
[2016-10-29] MEDS ORDERED: ONDANSETRON 4 MG/2 ML VIAL IVP ONE (07:25)
[2016-10-29] MEDS ORDERED: Sodium Chloride 0.9% 1,000 ML PRIMARY IV ONE (07:25)
[2016-10-29] MEDS ORDERED: Pantoprazole Inj 40 MG in Normal Saline Flush 10 ML IVP ONE (07:25)
[2016-10-29] MEDS ORDERED: NORMAL SALINE 10 ML SYRINGE FLUSH IVP PRN (07:25)
[2016-10-29] MEDS ORDERED: HYDROmorphone 2 MG/1 ML IVP ONE (07:28)
[2016-10-29 07:39] LABS: BASOPHILS # (AUTO) 0.12 10*3/UL; BASOPHILS % (AUTO) 1.9 % (0-1); EOSINOPHILS % (AUTO) 5.9 % (0-8); HEMATOCRIT 43.5 % (37.0-47.0); HEMOGLOBIN 15.2 g/dL (12.0-16.0); IMM GRAN % (AUTO) 0.2 % (0-5); IMM GRAN# (AUTO) 0.01 10*3/UL; LYMPHOCYTES # (AUTO) 1.32 10*3/uL; LYMPHOCYTES % (AUTO) 20.6 % (10-50); MEAN CORPUSCULAR HEMOGLOBIN 31.9 PG (27-31); MEAN CORPUSCULAR HGB CONC 34.9 g/dL (33-37); MEAN PLATELET VOLUME 11.1 FL (7.4-12.2); MONOCYTES # (AUTO) 0.27 10*3/UL (0.3-0.8); MONOCYTES % (AUTO) 4.2 % (5-15); NEUTROPHILS % (AUTO) 67.2 % (50-80); RDW COEFFICIENT OF VARIATION 12.7 % (11.5-14.5); RED BLOOD COUNT 4.76 10^6/uL (4.20-5.40)
[2016-10-29 07:40] LABS: PLATELET MORPHOLOGY COMMENT NORMAL MORPHOLOGY (NORM)
[2016-10-29 07:44] LABS: BILIRUBIN,TOTAL 1.4 mg/dL (0.3-1.2); BUN/CREATININE RATIO 19.33 (6-20); CALCIUM 11.3 mg/dL (8.7-10.7); CREATININE 1.5 mg/dL (0.50-1.20); POTASSIUM 4.5 meq/L (3.8-5.2); TOTAL PROTEIN 9.1 g/dL (6.1-8.0)
--- NOTE | 2016-10-29 08:54 | DI ---
HISTORY: Generalized abdominal pain with nausea. Patient states she has lost 50 pounds in two month s. Labs are too high for contrast. TECHNIQUE: Contiguous axial images of the abdomen and pelvis were obtained and submitted for interpr etation. FINDINGS: Limited sections of the lung bases demonstrate no focal pulmonary mass. Bibasilar linear- appearing opacities suggest atelectasis. The unenhanced liver and spleen return a normal attenuation. The gallbladder has been removed. Both kidneys, both adrenal glands, and pancreas demonstrate no acute findings. The left adrenal gland is slightly bulky, and this could relate to a small focal adrenal incidentaloma measuring 1.7 cm remini scent of a adenoma. The small and large bowel loops appear grossly unremarkable. The appendix is felt to be visualized a nd appears grossly unremarkable. There is segmental thickening of the sigmoid colon with diverticuli formation. This could be further evaluated with colonoscopy. There Is no free air or free fluid. The small bowel loops are not dila maryanne. There is moderate constipation. The uterus is slightly atrophied. Bilateral adnexal densities are favored to be ovarian in origin, a nd this can be further evaluated with pelvic ultrasound. Urinary bladder is grossly unremarkable and partially distended. The unenhanced aorta and IVC demonstrate no acute findings. There is atherosclerotic calcification o f the aorta. There is mild thickening of the GE junction. Collapsed stomach slightly thickened. The visualized osseous structures demonstrate no destructive abnormality. There is diffuse degenerat yaya change with vacuum phenomenon at L4/L5. IMPRESSION: 1. Probable bibasilar atelectasis. 2. Slightly bulky left adrenal gland could represent a small focal adrenal incidentaloma/adenoma. 3. Segmental thickening of the sigmoid colon with diverticuli formation. This could be further evalu ated with colonoscopy. 4. Slight uterine atrophy. 5. Degenerative osseous changes, as above.
--- NOTE | 2016-10-29 09:03 | PDOC ---
Abdomen/Flank HPI - General Chief Complaint: Abdomen Pain Stated Complaint: ABDOMINAL PAIN Date Seen by Provider: 10/29/16 Time Seen by Provider: 07:10 Source: POSITIVE: Patient, EMS Exam Limitations: POSITIVE: No limitations Nurse's Notes Reviewed & Considered: Yes EMS Report Reviewed & Considered: Verbal - History of Present Illness Initial Comments: The patient is a 61-year-old female. She states that around 10 PM last night, approximately 9 hours COMM[employer]ICATION[employer]OWER [employer]IM[employer] she once again developed pain in the upper abdomen. Patient has a long-standing history of chronic recurring abdominal pain. Patient underwent a laparoscopic cholecystectomy in July 2016, and states that her symptoms have been worse and more frequent since. She states that her pain is associated with vomiting. History of type II diabetes mellitus and hypertension. Patient was seen in the emergency room with identical symptoms . She was given rehydration with normal saline, Zofran and Dilaudid on that visit with complete resolution of her symptoms. CBC, CMP, amylase, lipase and urinalysis were normal at that time. She denies any fevers or chills. Vomiting as above, although I never witnessed any vomiting in the emergency room when she presents with these spells. No melena, hematochezia, hematemesis , dysuria or hematuria. Body Location Affected: REPORTS: Abdomen Timing: REPORTS: Abrupt Duration: <24 hours Severity: Moderate Quality: REPORTS: "Pain" Abdominal Pain Onset Location: REPORTS: RUQ, Epigastric Abdominal Pain Radiation: REPORTS: No radiation Context: REPORTS: None Modifying Factors: improves with: Vomiting Associated Symptoms: REPORTS: Nausea, Vomiting. DENIES: Denies symptoms, Back pain, Bloody Emesis, Chest pain, Coffee Grounds Emesis, Chills, Diaphoresis, Fever, Fatigue, Headache, Heartburn, Loss of Appetite, Rash, Shortness of breath , Swelling/mass in abdomen, Syncope, Testicular Pain, Weakness, Grossly Bloody Diarrhea, Constipation, Diarrhea, Dysuria, Incontinent Stool, Incontinent Urine , Mucous Diarrhea, Difficulty Walking, Dizziness, Light Headedness, Numbness, Other Similar Symptoms Previously: Yes (frequent episodes of abdominal pain since before July 2016 as above mos) Recent Care Received: REPORTS: Recently Seen, Treated by MD (On 27 October in the emergency room as above; please see previous emergency room notes) Any Prior Injuries Related to Current Complaint?: No - Patient Home Medications Home Medications: Home Medications Lisinopril [Prinivil Tab] 40 mg PO DAILY #30 tab 06/28/16 Dicyclomine HCl [Bentyl] 20 mg PO Q8H PRN #10 tablet 08/28/16 Pantoprazole Sodium [Protonix] 40 mg PO BID #60 tablet. 08/28/16 Promethazine HCl [Phenergan] 25 mg PO Q6H PRN #15 tab 08/28/16 Ondansetron Odt [Zofran Odt] 8 mg PO DAILY PRN #10 tab.rapdis 09/30/16 Polyethylene Glycol 3350 [Miralax] 17 gm PO DAILY PRN #1 bottle 09/30/16 glyBURIDE Tab [Micronase Tab] 5 mg PO DAILY 09/30/16 - Patient Allergies Allergies/Adverse Reactions: Allergies Allergy/AdvReac Type Severity Reaction Status Date / Time No Known Allergies Allergy Verified 10/29/16 07:09 Past Medical History - heen HEENT History: Hard of Hearing, Dental Disorders, Dentures/Partials Cardiovascular History: Hypertension Additional Cardiovasular History: DOES NOT TAKE HER BLOOD PRESSURE MEDS REGULARLY. Pt reports took bp medication this am. Respiratory History: Denies History Gastrointestinal History: Diverticulitis, Gallbladder Disease Additional Gastrointestinal History: LAST EPISODE 2010. PT HAS BEEN IN ER WITH ABDOMINAL PAIN, N/V FREQUENTLY OVER PAST 2 MONTHS. GB OUT 08/01/16 Genitourinary History: Denies History Endocrine History: Type 2 Diabetes (oral) Additional Endocrine History: HX OF NOT TAKING MEDS Musculoskeletal History: Denies History Prosthesis or Implant: No Neurological History: Denies History Blood Disorders: Denies History Psychiatric History: Denies History History of Sexually Transmitted Diseases: No Cancer History: Denies History In Past Year Been Physically Harmed or Verbally Threatened: No History of MDRO: No History of Other Communicable Diseases: No Tobacco Use: Current Every Day Smoker Alcohol Use: Occasionally Substance Use Type: None Previous Surgical History: Yes Type / Date of Surgery: TUBAL LIGATION. Michela Anesthesia Reactions: No Malignant Hyperthermia: No Significant Family History: No pertinent family hx Past Medical History Reviewed: Reviewed - No Changes ROS - Limitations ROS Limitations: No Limitations Constitution: REPORTS: Denies Symptoms Cardiovascular: REPORTS: Denies Cardiac Symptoms Respiratory: REPORTS: Denies Resp Symptoms Neurological: REPORTS: Denies Neuro Symptoms Gastrointestinal: REPORTS: Abdominal Pain, Nausea, Vomitting Endocrine: REPORTS: Denies Symptoms Musculoskeletal: REPORTS: Denies MS Symptoms Genitourinary: REPORTS: Denies Symptoms Eyes: REPORTS: Denies Symptoms ENT: REPORTS: Denies Symptoms Skin: REPORTS: Denies Skin Symptoms Lympathic: REPORTS: Denies Lympathic Symptoms Immunologic: POSITIVE: Denies Symptoms Psychiatric: POSITIVE: Anxiety Abdominal/Flank Pain PE - General Appearance General Appearance: POSITIVE: Alert, Cooperative, No Evidence of Trauma, Anxious , Moderate Distress - HEENT HEENT: POSITIVE: Head Inspection Nml, Eyes Inspection Nml, Ears Inspection Nml, Nose Inspection Nml, Oral/Dental Inspect. Nml, Pharynx Inspect. Nml, PERRL, EOMI - Neck Neck: POSITIVE: Normal Inspection, No Apparent Injury - Respiratory Respiratory: POSITIVE: No Respiratory Distress, Breath Sounds Normal, Chest Non- Tender - Cardiovascular Cardiovascular: POSITIVE: Regular Rate and Rhythm, Heart Sounds Normal, Equal Pulses, Strong Pulses Peripheral Pulses: Radial (R): 2+, Radial (L): 2+ - Chest Chest: POSITIVE: Non Tender - Abdomen Abdomen: Soft: (All Quadrants), Normal Bowel Sounds: (All Quadrants), Denies Tenderness: (LLQ), (RLQ), No Splenomegaly: (All Quadrants), No Hepatomegaly: ( All Quadrants), No Guarding: (All Quadrants), No Rebound: (All Quadrants), No Palpable Pulse: (All Quadrants), No Palpabale Mass: (All Quadrants), No Distention: (All Quadrants), No Rigidity: (All Quadrants), Tenderness Noted: ( RUQ), (LUQ) Additional Abdominal Details: Abdominal examination shows bowel sounds to be active. Patient expresses pain on palpation over the epigastrium and, less so, over the right upper and left upper abdomen. No masses, organomegaly or rebound. - Back Back: POSITIVE: Normal Inspection. 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, Motor Normal, Sensation Normal, 5, 6 - Psychological Psychiatric: POSITIVE: Anxious Images - Complete Complete: 1 - Area of described pain Abdomen Progress - Results Reviewed by me Xrays/CTs/US Reviewed by me: Yes Discussed with Radiologist: No Radiology Findings: CT scan abdomen and pelvis without IV contrast normal by my interpretation; radiologist interpretation pending Lab Results Reviewed: Yes Lab Results:: Laboratory Results 10/29/16 Range/Units 06:35 WBC 6.40 (4.8-10.8) 10^3/uL RBC 4.76 (4.20-5.40) 10^6/uL Hgb 15.2 (12.0-16.0) g/dL Hct 43.5 (37.0-47.0) % MCV 91.4 (81-99) FL MCH 31.9 H (27-31) PG MCHC 34.9 (33-37) g/dL RDW Std Deviation 41.6 (39-50) fL RDW Coeff of Mohini 12.7 (11.5-14.5) % Plt Count 362 H (140-350) 10*3/uL MPV 11.1 (7.4-12.2) FL Immature Gran % (Auto) 0.2 (0-5) % Neut % (Auto) 67.2 (50-80) % Lymph % (Auto) 20.6 (10-50) % [place] % (Auto) 4.2 L (5-15) % Eos % (Auto) 5.9 (0-8) % Baso % (Auto) 1.9 H (0-1) % Immature Gran # (Auto) 0.01 10*3/UL Neut # (Auto) 4.30 10*3/UL Lymph # (Auto) 1.32 10*3/uL [place] # (Auto) 0.27 L (0.3-0.8) 10*3/UL Eos # (Auto) 0.38 10*3/UL Baso # (Auto) 0.12 10*3/UL WBC Morphology Comment Normal morphology (NORM) Plt Morphology Comment Normal morphology (NORM) RBC Morph Comment Normal morphology (NORM) Sodium 136 (135-145) meq/L Potassium 4.5 (3.8-5.2) meq/L Chloride 99 (98-112) meq/L Carbon Dioxide 21 L (23-33) meq/L Anion Gap 16 (5-20) BUN 29 H (7-22) mg/dL Creatinine 1.5 H (0.50-1.20) mg/dL Estimated GFR 35 (>60 ml/min/1.73m(2)) BUN/Creatinine Ratio 19.33 (6-20) Glucose 184 H (78-110) mg/dL Calculated Osmolality 292.0 (267-292) mOsm/kg Calcium 11.3 H (8.7-10.7) mg/dL Total Bilirubin 1.4 H D (0.3-1.2) mg/dL AST 26 (8-39) IU/L ALT 31 (9-52) IU/L Alkaline Phosphatase 118 (38-126) IU/L Total Protein 9.1 H (6.1-8.0) g/dL Albumin 4.9 H (3.5-4.8) g/dL Globulin 4.2 H (2.50-4.10) g/dL Albumin/Globulin Ratio 1.10 L (1.3-2.0) mg/g Amylase 61 (30-110) U/L Lipase 107 (23-300) IU/L - Patient's Progress Pain Medication Addressed: POSITIVE: Yes (Patient given Dilaudid 2 mg IV along with rehydration with a liter normal saline and Zofran. Patient asymptomatic at time of discharge and is resting comfortably) School/Work Release Addressed: POSITIVE: Not Applicable (Patient on disability) Re-examine Time: 09:10 Re-Examine Comment: Abdominal pain resolved; nausea resolved; no vomiting observed in ER Status: POSITIVE: Improved, Re-Examined - Consult Counseled: POSITIVE: Patient, RE: Lab Results, RE: Radiology Results, RE: DX, RE : Need for F/U Patient Care Time - Estimated PCT Patient Care Time (In Minutes): 45 Vital Signs - Recent Vital Signs Vital Signs: Vital Signs (Last 8 hours) Temp Pulse Resp Pulse Ox 10/29/16 07:19 99.3 F 102 H 16 100 - VS Reviewed Vital Signs Reviewed: Yes Discharge Clinical Impression: Chronic abdominal pain, Nausea and vomiting Discharge Disposition: Discharged to Home Condition: Stable Patient Instructions Given at Discharge: Chronic Abdominal Pain (ED) Additional Instructions: I am not sure why you are having your chronic intermittent abdominal pain. I would recommend you follow-up with your surgeon or primary care provider and arrange to have a upper endoscopy, to check you for the possibility of ulcers. Please take your Protonix as has been described and your Bentyl. Continue your diabetes medications and blood pressure medications. Clear liquid diet for 12 hours. Return here as necessary. Follow Up With: BIGG OCHOA [Primary Care Provider] - (Instructions as above. Return here as necessary.)
== END 2016-10-29 09:27 | disposition home or self-care (01) ==
LOC: SUPCPDRO 07:07 → ER 07:07
DX: R10.13 Epigastric pain (principal); R11.2 Nausea with vomiting, unspecified; R10.11 Right upper quadrant pain; E11.9 Type 2 diabetes mellitus without complications; Z72.0 Tobacco use
CPT/HCPCS: 74176; 80053; 82150; 83690; 85025; 96374; 96375; 99283; 99284; J1170; J2405; J3490

== ENCOUNTER 2016-11-08 08:07 | Emergency (ER) | payer OTHER ==
[2016-11-08] MEDS ORDERED: diphenhydrAMINE 50 MG/1 ML VIAL IVP ONE (08:13)
--- NOTE | 2016-11-08 08:23 | PDOC ---
Abdomen/Flank HPI - General Chief Complaint: Abdomen Pain Stated Complaint: ABDOMINAL PAIN Date Seen by Provider: 11/08/16 Time Seen by Provider: 08:18 Source: POSITIVE: Patient Exam Limitations: POSITIVE: No limitations Nurse's Notes Reviewed & Considered: Yes EMS Report Reviewed & Considered: Verbal - History of Present Illness Initial Comments: This is a 61-year-old chronic abdominal pain patient who comes in with complaints of epigastric abdominal pain. She has a history of repeated visits to the emergency room always asking for narcotic medications. Today she is asking for fentanyl. In route via EMS she received diphenhydramine and ondansetron. She slept most of the right hand. At the time she will return to the emergency room she began writhing on the bed complaining of pain. She states she has not taken her lisinopril because she does not know her medication is. She was seen in the [facility] emergency room this weekend, and sent home. She states that they've told her nothing was wrong but could be found, and that she was in pain when they sent her home. With distraction she has ceased to writhe and has no pain cues present. Body Location Affected: REPORTS: Abdomen Timing: REPORTS: Constant Duration: Unknown Severity: Moderate Quality: REPORTS: "Pain" Abdominal Pain Onset Location: REPORTS: Epigastric Abdominal Pain Radiation: REPORTS: Other (Generalized abdomen) Context: REPORTS: None Modifying Factors: improves with: Other (Narcotics improve her pain as well as Benadryl.) Associated Symptoms: REPORTS: Loss of Appetite, Nausea Similar Symptoms Previously: Yes Recent Care Received: REPORTS: Recently Seen Any Prior Injuries Related to Current Complaint?: No - Patient Home Medications Home Medications: Home Medications Lisinopril [Prinivil Tab] 40 mg PO DAILY #30 tab 06/28/16 Dicyclomine HCl [Bentyl] 20 mg PO Q8H PRN #10 tablet 08/28/16 Pantoprazole Sodium [Protonix] 40 mg PO BID #60 tablet. 08/28/16 Promethazine HCl [Phenergan] 25 mg PO Q6H PRN #15 tab 08/28/16 Ondansetron Odt [Zofran Odt] 8 mg PO DAILY PRN #10 tab.rapdis 09/30/16 Polyethylene Glycol 3350 [Miralax] 17 gm PO DAILY PRN #1 bottle 09/30/16 glyBURIDE Tab [Micronase Tab] 5 mg PO DAILY 09/30/16 - Patient Allergies Allergies/Adverse Reactions: Allergies Allergy/AdvReac Type Severity Reaction Status Date / Time No Known Allergies Allergy Verified 11/08/16 08:00 Past Medical History - heen HEENT History: Hard of Hearing, Dental Disorders, Dentures/Partials Cardiovascular History: Hypertension Additional Cardiovasular History: DOES NOT TAKE HER BLOOD PRESSURE MEDS REGULARLY. Pt reports took bp medication this am. Respiratory History: Denies History Gastrointestinal History: Diverticulitis, Gallbladder Disease Additional Gastrointestinal History: LAST EPISODE 2010. PT HAS BEEN IN ER WITH ABDOMINAL PAIN, N/V FREQUENTLY OVER PAST 2 MONTHS. GB OUT 08/01/16 Genitourinary History: Denies History Endocrine History: Type 2 Diabetes (oral) Additional Endocrine History: HX OF NOT TAKING MEDS Musculoskeletal History: Denies History Prosthesis or Implant: No Neurological History: Denies History Blood Disorders: Denies History Psychiatric History: Denies History History of Sexually Transmitted Diseases: No Cancer History: Denies History History of MDRO: No History of Other Communicable Diseases: No Alcohol Use: Occasionally Substance Use Type: None Previous Surgical History: Yes Type / Date of Surgery: TUBAL LIGATION. Michela Anesthesia Reactions: No Malignant Hyperthermia: No Significant Family History: No pertinent family hx ROS - Limitations ROS Limitations: No Limitations Constitution: REPORTS: Denies Symptoms Cardiovascular: REPORTS: Denies Cardiac Symptoms Respiratory: REPORTS: Denies Resp Symptoms Neurological: REPORTS: Denies Neuro Symptoms Gastrointestinal: REPORTS: Abdominal Pain, Nausea Endocrine: REPORTS: Denies Symptoms Musculoskeletal: REPORTS: Denies MS Symptoms Genitourinary: REPORTS: Denies Symptoms Eyes: REPORTS: Denies Symptoms ENT: REPORTS: Denies Symptoms Skin: REPORTS: Denies Skin Symptoms Lympathic: REPORTS: Denies Lympathic Symptoms Immunologic: POSITIVE: Denies Symptoms Psychiatric: POSITIVE: Anxiety Abdominal/Flank Pain PE - General Appearance General Appearance: POSITIVE: Alert, No Evidence of Trauma, Anxious, Mild Distress - HEENT HEENT: POSITIVE: Head Inspection Nml, Eyes Inspection Nml, Ears Inspection Nml, Nose Inspection Nml, PERRL, EOMI - Neck Neck: POSITIVE: Normal Inspection, No Apparent Injury - Respiratory Respiratory: POSITIVE: No Respiratory Distress, Breath Sounds Normal, Chest Non- Tender - Cardiovascular Cardiovascular: POSITIVE: Regular Rate and Rhythm, Heart Sounds Normal - Chest Chest: POSITIVE: Non Tender - Abdomen Abdomen: Soft: (All Quadrants), Normal Bowel Sounds: (All Quadrants), No Splenomegaly: (All Quadrants), No Hepatomegaly: (All Quadrants), No Guarding: ( All Quadrants), No Rebound: (All Quadrants), No Palpable Pulse: (All Quadrants) , No [place] Mass: (All Quadrants), No Distention: (All Quadrants), No Rigidity: (All Quadrants), Tenderness Noted: (All Quadrants) - Back Back: POSITIVE: Normal Inspection - Skin Skin: POSITIVE: Intact, Normal For Race, Warm, Dry, No Rash - Extremities Extremity: Non-Tender: (All Extremities), Normal ROM: (All Extremities), Normal Inspection: (All Extremities) - Neurological Neurological: POSITIVE: Oriented X3, 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 Normal As Tested, Motor Normal, Sensation Normal - Psychological Psychiatric: POSITIVE: Anxious Abdomen Progress - Results Reviewed by me Lab Results Reviewed: Yes Lab Results:: Laboratory Results 11/08/16 Range/Units 08:26 WBC 6.55 (4.8-10.8) 10^3/uL RBC 4.15 L (4.20-5.40) 10^6/uL Hgb 13.2 (12.0-16.0) g/dL Hct 38.1 (37.0-47.0) % MCV 91.8 (81-99) FL MCH 31.8 H (27-31) PG MCHC 34.6 (33-37) g/dL RDW Std Deviation 41.9 (39-50) fL RDW Coeff of Mohini 12.9 (11.5-14.5) % Plt Count 305 (140-350) 10*3/uL MPV 10.4 (7.4-12.2) FL Immature Gran % (Auto) 0.2 (0-5) % Neut % (Auto) 78.2 (50-80) % Lymph % (Auto) 11.9 (10-50) % [place] % (Auto) 5.0 (5-15) % Eos % (Auto) 3.8 (0-8) % Baso % (Auto) 0.9 (0-1) % Immature Gran # (Auto) 0.01 10*3/UL Neut # (Auto) 5.12 10*3/UL Lymph # (Auto) 0.78 10*3/uL [place] # (Auto) 0.33 (0.3-0.8) 10*3/UL Eos # (Auto) 0.25 10*3/UL Baso # (Auto) 0.06 10*3/UL WBC Morphology Comment Normal morphology (NORM) Plt Morphology Comment Normal morphology (NORM) RBC Morph Comment Normal morphology (NORM) Sodium 131 L (135-145) meq/L Potassium 3.9 (3.8-5.2) meq/L Chloride 100 (98-112) meq/L Carbon Dioxide 21 L (23-33) meq/L Anion Gap 10 (5-20) BUN 12 (7-22) mg/dL Creatinine 1.0 (0.50-1.20) mg/dL Estimated GFR 57 (>60 ml/min/1.73m(2)) BUN/Creatinine Ratio 12.00 (6-20) Glucose 135 H (78-110) mg/dL Calculated Osmolality 273.0 (267-292) mOsm/kg Calcium 9.5 (8.7-10.7) mg/dL Total Bilirubin 0.8 (0.3-1.2) mg/dL AST 14 (8-39) IU/L ALT 31 (9-52) IU/L Alkaline Phosphatase 79 (38-126) IU/L Total Protein 6.9 (6.1-8.0) g/dL Albumin 3.8 (3.5-4.8) g/dL Globulin 3.1 (2.50-4.10) g/dL Albumin/Globulin Ratio 1.20 L (1.3-2.0) mg/g - Patient's Progress Pain Medication Addressed: POSITIVE: No, Other (Please Comment) (Patient received in route to the emergency department 25 mg of Benadryl, and Zofran. Here in the emergency room she received an additional 25 mg of Benadryl, and 20 mg of IV labetalol. Her pain improved and she was resting and her blood pressure improved she is discharged improved condition.) Status: POSITIVE: Improved MDM / ED Course: Patient was examined, blood was drawn and sent to the lab for studies. Patient received 25 mg of IV diphenhydramine, and 20 mg of IV labetalol. She was resting quietly and sleeping her blood pressure improved. Findings: CBC is unremarkable, comprehensive metabolic panel is unremarkable. Assessment: Chronic abdominal pain with narcotic seeking behavior. Plan: Discharge home. - Consult Counseled: POSITIVE: Patient, RE: Lab Results, RE: DX (you have been diagnosed with chronic abdominal pain of unknown etiology. Laboratory studies are normal. You need to follow up with her primary care physician and consider consultation with a GI doctor for further workup.) Patient Care Time - Estimated PCT Patient Care Time (In Minutes): 20 Vital Signs - VS Reviewed Vital Signs Reviewed: Yes Discharge Clinical Impression: Abdominal pain in female, Abdominal pain Discharge Disposition: Discharged to Home Condition: Stable Patient Instructions Given at Discharge: Abdominal Pain (ED)
[2016-11-08] MEDS ORDERED: LABETALOL 20 MG/4 ML (5 MG/1 ML) SYRINGE IVP ONE (08:27)
[2016-11-08 08:29] LABS: BASOPHILS # (AUTO) 0.06 10*3/UL; BASOPHILS % (AUTO) 0.9 % (0-1); EOSINOPHILS # (AUTO) 0.25 10*3/UL; EOSINOPHILS % (AUTO) 3.8 % (0-8); HEMATOCRIT 38.1 % (37.0-47.0); HEMOGLOBIN 13.2 g/dL (12.0-16.0); LYMPHOCYTES # (AUTO) 0.78 10*3/uL; MEAN CORPUSCULAR HEMOGLOBIN 31.8 PG (27-31); MEAN CORPUSCULAR HGB CONC 34.6 g/dL (33-37); MEAN PLATELET VOLUME 10.4 FL (7.4-12.2); MONOCYTES # (AUTO) 0.33 10*3/UL (0.3-0.8); NEUTROPHILS # (AUTO) 5.12 10*3/UL; NEUTROPHILS % (AUTO) 78.2 % (50-80); RED BLOOD COUNT 4.15 10^6/uL (4.20-5.40)
[2016-11-08 08:34] LABS: PLATELET MORPHOLOGY COMMENT NORMAL MORPHOLOGY (NORM); RBC MORPHOLOGY COMMENT NORMAL MORPHOLOGY (NORM); WBC MORPHOLOGY COMMENT NORMAL MORPHOLOGY (NORM)
[2016-11-08 08:38] LABS: CALCIUM 9.5 mg/dL (8.7-10.7); SERUM ALBUMIN 3.8 g/dL (3.5-4.8)
[2016-11-08 08:56] VITALS: TEMP 98.3
[2016-11-08 09:10] VITALS: RESP 14
== END 2016-11-08 10:50 | disposition home or self-care (01) ==
LOC: ER 08:07
DX: R10.13 Epigastric pain (principal)
CPT/HCPCS: 36415; 80053; 85025; 96374; 96375; 99283 ×2; J1200

== ENCOUNTER 2016-11-10 10:09 | Emergency (ER) | payer OTHER ==
[2016-11-10] MEDS ORDERED: Prochlorperazine Edisylate Inj 10mg/2ml vial IVP ONE (10:17)
[2016-11-10] MEDS ORDERED: Sodium Chloride 0.9% 1,000 ML PRIMARY IV ONE (10:17)
[2016-11-10] MEDS ORDERED: NORMAL SALINE 10 ML SYRINGE FLUSH IVP PRN (10:17)
[2016-11-10] MEDS ORDERED: Pantoprazole Inj 40 MG in Normal Saline Flush 10 ML IVP ONE (10:17)
[2016-11-10] MEDS ORDERED: LABETALOL 20 MG/4 ML (5 MG/1 ML) SYRINGE IVP ONE (10:19)
--- NOTE | 2016-11-10 10:26 | PDOC ---
Abdomen/Flank HPI - General Chief Complaint: Nausea / Vomiting / Diarrhea Stated Complaint: N/V Date Seen by Provider: 11/10/16 Time Seen by Provider: 10:20 Source: POSITIVE: Patient, EMS Exam Limitations: POSITIVE: No limitations Nurse's Notes Reviewed & Considered: Yes EMS Report Reviewed & Considered: Verbal - History of Present Illness Initial Comments: The patient is a 61-year-old female who presents to the emergency department by ambulance with complaints of epigastric abdominal pain as well as nausea and vomiting. She has had multiple presentations to the emergency room over the past 6 months with similar symptoms and complaints. She has been worked up multiple times in the etiology of this pain is unclear. She does have medication noncompliance at home. She is supposed to be taking blood pressure medications as well as a proton pump inhibitor. She has also been prescribed Bentyl and anti-emetics. She states she has not taken any of her medications for about a week stating that she lost her blood pressure pills and she needs to get some new ones. She was seen here in the emergency room 2 days ago with the exact same complaints. She typically comes to the emergency department by ambulance. She states that she had onset of epigastric pain, nausea and vomiting this morning about 2 AM. She denies any chest pain or shortness of breath. She states she has been having some constipation. She denies urinary symptoms. She has not had any fevers or chills. In route she was somewhat hypertensive with blood pressure in the 150s over 100s. She did receive Benadryl as well as Zofran and Pepcid in route. - Patient Home Medications Home Medications: Home Medications Lisinopril [Prinivil Tab] 40 mg PO DAILY #30 tab 06/28/16 Dicyclomine HCl [Bentyl] 20 mg PO Q8H PRN #10 tablet 08/28/16 Pantoprazole Sodium [Protonix] 40 mg PO BID #60 tablet. 08/28/16 Promethazine HCl [Phenergan] 25 mg PO Q6H PRN #15 tab 08/28/16 Ondansetron Odt [Zofran Odt] 8 mg PO DAILY PRN #10 tab.rapdis 09/30/16 Polyethylene Glycol 3350 [Miralax] 17 gm PO DAILY PRN #1 bottle 09/30/16 Pantoprazole Sodium [Protonix] 40 mg PO BID #60 tablet. 11/10/16 Promethazine HCl [Phenergan] 25 mg PO Q6H PRN #15 tab 11/10/16 - Patient Allergies Allergies/Adverse Reactions: Allergies Allergy/AdvReac Type Severity Reaction Status Date / Time No Known Allergies Allergy Verified 11/10/16 10:43 Past Medical History - heen HEENT History: Hard of Hearing, Dental Disorders, Dentures/Partials Cardiovascular History: Hypertension Additional Cardiovasular History: DOES NOT TAKE HER BLOOD PRESSURE MEDS REGULARLY. Pt reports took bp medication this am. Respiratory History: Denies History Gastrointestinal History: Diverticulitis, Gallbladder Disease Additional Gastrointestinal History: LAST EPISODE 2010. PT HAS BEEN IN ER WITH ABDOMINAL PAIN, N/V FREQUENTLY OVER PAST 2 MONTHS. GB OUT 08/01/16 Genitourinary History: Denies History Endocrine History: Type 2 Diabetes (oral) Additional Endocrine History: HX OF NOT TAKING MEDS Musculoskeletal History: Denies History Prosthesis or Implant: No Neurological History: Denies History Blood Disorders: Denies History Psychiatric History: Denies History History of Sexually Transmitted Diseases: No Cancer History: Denies History History of MDRO: No History of Other Communicable Diseases: No Alcohol Use: Occasionally Substance Use Type: None Previous Surgical History: Yes Type / Date of Surgery: TUBAL LIGATION. Michela Anesthesia Reactions: No Malignant Hyperthermia: No Significant Family History: No pertinent family hx Past Medical History Reviewed: Reviewed - No Changes ROS - Limitations ROS Limitations: No Limitations Constitution: DENIES: Chills, Fever Cardiovascular: REPORTS: Denies Cardiac Symptoms. DENIES: Chest Pain Respiratory: REPORTS: Denies Resp Symptoms Neurological: REPORTS: Denies Neuro Symptoms Gastrointestinal: REPORTS: Abdominal Pain, Nausea, Vomitting, Constipation. DENIES: Black Stools, Bloody Stools Musculoskeletal: REPORTS: Denies MS Symptoms Genitourinary: REPORTS: Denies Symptoms Eyes: REPORTS: Denies Symptoms ENT: REPORTS: Denies Symptoms Skin: DENIES: Rash Abdominal/Flank Pain PE - General Appearance General Appearance: POSITIVE: Alert, Cooperative, No Acute Distress, Anxious - HEENT HEENT: POSITIVE: Head Inspection Nml, Eyes Inspection Nml, Pharynx Inspect. Nml , PERRL, EOMI, Dry Mucous Membranes - Neck Neck: POSITIVE: Normal Inspection - Respiratory Respiratory: POSITIVE: No Respiratory Distress, Breath Sounds Normal - Cardiovascular Cardiovascular: POSITIVE: Regular Rate and Rhythm, Heart Sounds Normal Peripheral Pulses: Dorsalis-pedis (R): 2+, Dorsalis-pedis (L): 2+ - Abdomen Abdomen: Soft: (All Quadrants), Normal Bowel Sounds: (All Quadrants), No Guarding: (All Quadrants), No Rebound: (All Quadrants) Additional Abdominal Details: She does have tenderness in the epigastric region without guarding or rebound tenderness, no palpable mass. - Back Back: POSITIVE: Normal Inspection - Skin Skin: POSITIVE: Intact, No Rash - Extremities Extremity: Normal ROM: (All Extremities), Normal Inspection: (All Extremities) Abdomen Progress - Results Reviewed by me Xrays/CTs/US Reviewed by me: Yes Discussed with Radiologist: Yes Radiology Findings: Abdominal series reveals nonobstructive bowel gas pattern. No evidence of free air or any other acute abnormalities per radiologist. Lab Results Reviewed: Yes Lab Results:: Laboratory Results 11/10/16 11/10/16 Range/Units 10:36 10:50 WBC 5.24 (4.8-10.8) 10^3/uL RBC 4.11 L (4.20-5.40) 10^6/uL Hgb 13.0 (12.0-16.0) g/dL Hct 37.7 (37.0-47.0) % MCV 91.7 (81-99) FL MCH 31.6 H (27-31) PG MCHC 34.5 (33-37) g/dL RDW Std Deviation 43.0 (39-50) fL RDW Coeff of Mohini 13.2 (11.5-14.5) % Plt Count 326 (140-350) 10*3/uL MPV 10.1 (7.4-12.2) FL Immature Gran % (Auto) 0.2 (0-5) % Neut % (Auto) 60.9 (50-80) % Lymph % (Auto) 25.2 (10-50) % [place] % (Auto) 6.7 (5-15) % Eos % (Auto) 5.5 (0-8) % Baso % (Auto) 1.5 H (0-1) % Immature Gran # (Auto) 0.01 10*3/UL Neut # (Auto) 3.19 10*3/UL Lymph # (Auto) 1.32 10*3/uL [place] # (Auto) 0.35 (0.3-0.8) 10*3/UL Eos # (Auto) 0.29 10*3/UL Baso # (Auto) 0.08 10*3/UL WBC Morphology Comment Normal morphology (NORM) Plt Morphology Comment Normal morphology (NORM) RBC Morph Comment Normal morphology (NORM) Sodium 133 L (135-145) meq/L Potassium 4.0 (3.8-5.2) meq/L Chloride 102 (98-112) meq/L Carbon Dioxide 20 L (23-33) meq/L Anion Gap 11 (5-20) BUN 13 (7-22) mg/dL Creatinine 1.2 (0.50-1.20) mg/dL Estimated GFR 46 (>60 ml/min/1.73m(2)) BUN/Creatinine Ratio 10.83 (6-20) Glucose 125 H (78-110) mg/dL Calculated Osmolality 276.0 (267-292) mOsm/kg Calcium 9.9 (8.7-10.7) mg/dL Total Bilirubin 1.2 (0.3-1.2) mg/dL AST 26 (8-39) IU/L ALT 29 (9-52) IU/L Alkaline Phosphatase 80 (38-126) IU/L Troponin I < 0.012 (< 0.040) ng/mL C-Reactive Protein 0.7 (0.0-0.9) mg/dL Total Protein 7.2 (6.1-8.0) g/dL Albumin 4.0 (3.5-4.8) g/dL Globulin 3.2 (2.50-4.10) g/dL Albumin/Globulin Ratio 1.20 L (1.3-2.0) mg/g Amylase < 30 L (30-110) U/L Lipase 46 (23-300) IU/L Ur Collection Type Clean catch urine Urine Color Yellow Urine Clarity Clear (CLEAR) Urine pH 5.5 (5.0-8.5) Ur Specific [place] 1.025 (1.005-1.030) Urine Protein 30 (NEG) mg/dl Urine Glucose (UA) Negative (NEG) mg/dL Urine Ketones 15 (NEG) Urine Occult Blood Negative (NEG) Urine Nitrate Negative (NEG) Urine Bilirubin Small (NEG) Urine Urobilinogen 0.2 (0.2) EU/dL Ur Leukocyte Esterase Negative (NEG) Urine RBC 1-3 (NONE) /hpf Urine WBC 3-5 (NONE) Ur Squamous Epith Cells Moderate (NONE) Ur Renal Epithelial Cell None (NONE) Urine Crystals None Urine Bacteria Rare (NONE) Urine Casts None (NONE) Urine Mucus Few (NONE) Urine Trichomonas None (NONE) Urine Yeast None (NONE) Ur Culture Indicated? Culture not set EKG Interpreted/Reviewed By Me:: Yes EKG Interpretation:: POSITIVE: Normal Sinus Rhythm, Other (Left bundle branch block which has been present on previous EKGs as well.) - Patient's Progress MDM / ED Course: On arrival here in the emergency department she remains hypertensive with a blood pressure in the 190s over 110s. She did receive a dose of IV labetalol 10 mg as well as Compazine 5 mg IV and Protonix 40 mg IV. Social service consult was obtained because of the patient's medication noncompliance at home and frequent visits to the emergency department that result from this. They have made arrangements to have [facility] [place] [facility] she lives do an assessment in her home to determine her needs for home health and hopefully arrange at least for some aid in administering her medications on a regular basis to decrease medication day compliance. Here after administration of labetalol her blood pressure came down into the 130s over 70s. Her pain resolved and she had no further vomiting here in the emergency room. Her lab work is all essentially normal and her x-ray is normal. EKG shows left bundle branch block which is unchanged from previous. At this point her pain and vomiting is likely secondary to gastritis. She was again prescribed Protonix 40 mg twice a day as well as Phenergan as needed for nausea. In addition she is advised to resume her blood pressure medication as previously prescribed. She is to return to the emergency room if any worsening or change in symptoms. She is advised to follow-up with primary care in 3-5 days. - Consult Counseled: POSITIVE: Patient, RE: Lab Results, RE: Radiology Results, RE: DX, RE : Need for F/U Patient Care Time - Estimated PCT Patient Care Time (In Minutes): 40 Vital Signs - Recent Vital Signs Vital Signs: Vital Signs (Last 8 hours) Temp Pulse Resp BP Pulse Ox 11/10/16 10:19 97.7 F 92 18 192/121 99 - VS Reviewed Vital Signs Reviewed: Yes Discharge Clinical Impression: Epigastric abdominal pain, Nausea and vomiting, HTN (hypertension) Condition: Stable Prescriptions / Orders: Promethazine HCl [Phenergan] 25 mg PO Q6H PRN #15 tab PRN Reason: Nausea / Vomiting Pantoprazole Sodium [Protonix] 40 mg PO BID #60 tablet.dr Patient Instructions Given at Discharge: Acute Nausea and Vomiting (ED), Acute Abdominal Pain (ED), Hypertension (ED) Additional Instructions: Your x-ray done in the emergency department of your abdomen was unremarkable and showed no evidence of perforation or obstruction. Your lab work was also all normal. Your blood pressure was elevated initially and came down after administration of medications. As has been discussed previously it is very important that you take your medications properly at home. Because of this a social service consultation was obtained and arrangements have been made for [facility] [employer] [facility] come and evaluate you at your home to determine what needs you might have to help you with your medical care. You have been given new prescriptions for Protonix 40 mg twice a day which should be taken for your stomach. In addition you have been prescribed Phenergan as needed for nausea. Recommend that you restart your blood pressure medication as previously prescribed. You should have a follow-up with your primary care provider in the next 2-3 days. Return to the emergency room if any worsening or change in symptoms. Follow Up With: GIOVANNI ISSA [Primary Care Provider] -
--- NOTE | 2016-11-10 10:28 | EKG ---
[address] [address] Measurements Intervals [place] Rate: 92 P: 57 [place]: 151 QRS: 20 QRSD: 134 T: 107 QT: 386 QTc: 436 Interpretive Statements SINUS RHYTHM LEFT BUNDLE BRANCH BLOCK Compared to ECG 08/05/2016 09:07:07 Sinus arrhythmia no longer present Possible ischemia no longer present Electronically Signed On 11-10-16 12:16:11 MDT by Ashwin Bell [email or web address]
[2016-11-10 10:40] LABS: BASOPHILS # (AUTO) 0.08 10*3/UL; BASOPHILS % (AUTO) 1.5 % (0-1); EOSINOPHILS # (AUTO) 0.29 10*3/UL; EOSINOPHILS % (AUTO) 5.5 % (0-8); HEMATOCRIT 37.7 % (37.0-47.0); LYMPHOCYTES # (AUTO) 1.32 10*3/uL; MEAN CORPUSCULAR HEMOGLOBIN 31.6 PG (27-31); MEAN CORPUSCULAR HGB CONC 34.5 g/dL (33-37); MEAN CORPUSCULAR VOLUME 91.7 FL (81-99); MEAN PLATELET VOLUME 10.1 FL (7.4-12.2); MONOCYTES # (AUTO) 0.35 10*3/UL (0.3-0.8); MONOCYTES % (AUTO) 6.7 % (5-15); NEUTROPHILS # (AUTO) 3.19 10*3/UL; NEUTROPHILS % (AUTO) 60.9 % (50-80); RED BLOOD COUNT 4.11 10^6/uL (4.20-5.40)
[2016-11-10 10:52] LABS: PLATELET MORPHOLOGY COMMENT NORMAL MORPHOLOGY (NORM); RBC MORPHOLOGY COMMENT NORMAL MORPHOLOGY (NORM); WBC MORPHOLOGY COMMENT NORMAL MORPHOLOGY (NORM)
[2016-11-10 10:57] LABS: BLOOD UREA NITROGEN 13 mg/dL (7-22); BUN/CREATININE RATIO 10.83 (6-20); C-REACTIVE PROTEIN 0.7 mg/dL (0.0-0.9); CALCIUM 9.9 mg/dL (8.7-10.7); EST GLOMERULAR FILTRATION 46 (>60 ml/min/1.73m(2)); LIPASE 46 IU/L (23-300)
[2016-11-10 11:10] LABS: CLARITY,URINE CLEAR (CLEAR); COLOR,URINE YELLOW; PH,URINE 5.5 (5.0-8.5); URINE SAMPLE TYPE CLEAN CATCH URINE
[2016-11-10 11:11] LABS: BILIRUBIN,URINE SMALL (NEG); GLUCOSE, URINE (UA) NEGATIVE (NEG); NITRATE,URINE NEGATIVE (NEG); OCCULT BLOOD,URINE NEGATIVE (NEG); PROTEIN,URINE 30 mg/dl (NEG); UROBILINOGEN,URINE 0.2 EU/dL (0.2)
[2016-11-10 11:12] LABS: BACTERIA,URINE RARE; SQUAMOUS EPITHELIAL CELL,UR MODERATE
[2016-11-10 11:13] VITALS: RESP 18; TEMP 97.7
--- NOTE | 2016-11-10 12:10 | DI ---
XR ABDOMEN ACUTE 2/ABD 1/CXR,11/10/2016 10:21 AM: Clinical History: Epigastric pain. Previous Exam: None at this facility. Findings: A routine acute abdominal series is performed demonstrating clear lungs. The cardiomediastinum and [place] thorax are unremarkable. There is no subdiaphragmatic free air. A nonobstructive bowel gas pattern is seen. Moderate stool is seen throughout the colon. Patient is status post cholecystectomy. The skeletal structures are unremarkable. There is mild degenerative changes of the left hip. Impression: 1. No acute intra-abdominal pathology. 2. Diffuse degenerative changes of the left hip.
== END 2016-11-10 12:55 | disposition home or self-care (01) ==
LOC: ER 10:09
DX: R10.13 Epigastric pain (principal); R11.2 Nausea with vomiting, unspecified; I10 Essential (primary) hypertension; E11.9 Type 2 diabetes mellitus without complications
CPT/HCPCS: 36415; 74022; 80053; 81001; 81003; 82150; 83690; 84484; 85025; 86140; 93005; 93010; 96361; 96374; 96375; 99283; J0780; J3490; J7030

== ENCOUNTER 2016-11-16 09:00 | Emergency (ER) | payer OTHER ==
[2016-11-16] MEDS ORDERED: Sodium Chloride 0.9% 1,000 ML PRIMARY IV ONE (09:13)
--- NOTE | 2016-11-16 09:14 | PDOC ---
Abdomen/Flank HPI - General Chief Complaint: Abdomen Pain Stated Complaint: ABDOMINAL PAIN Date Seen by Provider: 11/16/16 Time Seen by Provider: 09:17 Source: POSITIVE: Patient Exam Limitations: POSITIVE: No limitations Nurse's Notes Reviewed & Considered: Yes EMS Report Reviewed & Considered: Verbal - History of Present Illness Initial Comments: This patient comes in today with complaints of epigastric abdominal pain. Patient has chronic abdominal pain, and has been seen in the emergency department at least 7 times since October 19. She has been out of her high blood pressure medication for at least a week. She states she will buy new blood pressure medication on Monday because she is paid on Monday. Patient has begun asking for pain medication by name, specifically fentanyl, and Dilaudid. In route via EMS, patient received an IV with 100 mL of normal saline, morphine , and 13 mg of labetalol. Her pain has improved. The patient states that her pain is in the epigastric region, and radiates to all other quadrants of her abdomen. At present she denies nausea, vomiting, or diarrhea. No fever chills or sweats. No chest pain or shortness of breath, or cough. No hematuria or dysuria. No rashes. Body Location Affected: REPORTS: Abdomen Timing: REPORTS: Abrupt Duration: Unknown Severity: Severe Quality: REPORTS: "Pain", Sharpness, Throbbing Abdominal Pain Onset Location: REPORTS: Epigastric Abdominal Pain Radiation: REPORTS: Other (General abdomen) Context: REPORTS: None Modifying Factors: improves with: Analgesics (Specifically fentanyl and Dilaudid ) Associated Symptoms: REPORTS: Denies symptoms Similar Symptoms Previously: Yes (patient has been seen 7 times since the first of the month in an emergency ) Recent Care Received: REPORTS: Recently Seen, Treated by (Last seen in the emergency room here in [place] on November 10.) - Patient Home Medications Home Medications: Home Medications Lisinopril [Prinivil Tab] 40 mg PO DAILY #30 tab 06/28/16 Dicyclomine HCl [Bentyl] 20 mg PO Q8H PRN #10 tablet 08/28/16 Pantoprazole Sodium [Protonix] 40 mg PO BID #60 tablet. 08/28/16 Promethazine HCl [Phenergan] 25 mg PO Q6H PRN #15 tab 08/28/16 Ondansetron Odt [Zofran Odt] 8 mg PO DAILY PRN #10 tab.rapdis 09/30/16 Polyethylene Glycol 3350 [Miralax] 17 gm PO DAILY PRN #1 bottle 09/30/16 - Patient Allergies Allergies/Adverse Reactions: Allergies Allergy/AdvReac Type Severity Reaction Status Date / Time No Known Allergies Allergy Verified 11/16/16 09:11 Past Medical History - heen HEENT History: Hard of Hearing, Dental Disorders, Dentures/Partials Cardiovascular History: Hypertension Additional Cardiovasular History: DOES NOT TAKE HER BLOOD PRESSURE MEDS REGULARLY. Pt reports took bp medication this am. Respiratory History: Denies History Gastrointestinal History: Diverticulitis, Gallbladder Disease Additional Gastrointestinal History: LAST EPISODE 2010. PT HAS BEEN IN ER WITH ABDOMINAL PAIN, N/V FREQUENTLY OVER PAST 2 MONTHS. GB OUT 08/01/16 Genitourinary History: Denies History Endocrine History: Type 2 Diabetes (oral) Additional Endocrine History: HX OF NOT TAKING MEDS Musculoskeletal History: Denies History Prosthesis or Implant: No Neurological History: Denies History Blood Disorders: Denies History Psychiatric History: Denies History History of Sexually Transmitted Diseases: No Cancer History: Denies History History of MDRO: No History of Other Communicable Diseases: No Alcohol Use: Occasionally Substance Use Type: None Previous Surgical History: Yes Type / Date of Surgery: TUBAL LIGATION. Michela Anesthesia Reactions: No Malignant Hyperthermia: No Significant Family History: No pertinent family hx ROS - Limitations ROS Limitations: No Limitations Constitution: REPORTS: Denies Symptoms Cardiovascular: REPORTS: Denies Cardiac Symptoms Respiratory: REPORTS: Denies Resp Symptoms Neurological: REPORTS: Denies Neuro Symptoms Gastrointestinal: REPORTS: Abdominal Pain Endocrine: REPORTS: Denies Symptoms Musculoskeletal: REPORTS: Denies MS Symptoms Genitourinary: REPORTS: Denies Symptoms Eyes: REPORTS: Denies Symptoms ENT: REPORTS: Denies Symptoms Skin: REPORTS: Denies Skin Symptoms Lympathic: REPORTS: Denies Lympathic Symptoms Immunologic: POSITIVE: Denies Symptoms Psychiatric: POSITIVE: Denies Psych Symptoms Abdominal/Flank Pain PE - General Appearance General Appearance: POSITIVE: Alert, Cooperative, No Evidence of Trauma, Mild Distress - HEENT HEENT: POSITIVE: Head Inspection Nml, Eyes Inspection Nml, Ears Inspection Nml, Nose Inspection Nml, PERRL, EOMI - Neck Neck: POSITIVE: Normal Inspection, No Apparent Injury - Respiratory Respiratory: POSITIVE: No Respiratory Distress, Breath Sounds Normal, Chest Non- Tender - Cardiovascular Cardiovascular: POSITIVE: Regular Rate and Rhythm, Heart Sounds Normal - Chest Chest: POSITIVE: Non Tender - Abdomen Abdomen: Soft: (All Quadrants), Normal Bowel Sounds: (All Quadrants), Tenderness Noted: (All Quadrants) (patient is nontender to palpation with stethoscope.) - Back Back: POSITIVE: Normal Inspection - Skin Skin: POSITIVE: Intact, Normal For Race, Warm, Dry, No Rash - Extremities Extremity: Non-Tender: (All Extremities), Normal ROM: (All Extremities), Normal Inspection: (All Extremities), Pelvis Stable: (All Extremities) - Neurological Neurological: POSITIVE: Affect Apporpriate, Oriented X3, 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 Normal As Tested, Motor Normal, Sensation Normal - Psychological Psychiatric: POSITIVE: Affect Appropriate, Mood Appropriate Abdomen Progress - Results Reviewed by me Xrays/CTs/US Reviewed by me: Yes Discussed with Radiologist: No Lab Results Reviewed: Yes Lab Results:: Laboratory Results 11/16/16 11/16/16 Range/Units 08:41 10:39 WBC 6.13 (4.8-10.8) 10^3/uL RBC 4.37 (4.20-5.40) 10^6/uL Hgb 14.0 (12.0-16.0) g/dL Hct 40.3 (37.0-47.0) % MCV 92.2 (81-99) FL MCH 32.0 H (27-31) PG MCHC 34.7 (33-37) g/dL RDW Std Deviation 43.4 (39-50) fL RDW Coeff of Mohini 13.1 (11.5-14.5) % Plt Count 354 H (140-350) 10*3/uL MPV 10.6 (7.4-12.2) FL Immature Gran % (Auto) 0.2 (0-5) % Neut % (Auto) 61.5 (50-80) % Lymph % (Auto) 25.1 (10-50) % [place] % (Auto) 5.9 (5-15) % Eos % (Auto) 5.7 (0-8) % Baso % (Auto) 1.6 H (0-1) % Immature Gran # (Auto) 0.01 10*3/UL Neut # (Auto) 3.77 10*3/UL Lymph # (Auto) 1.54 10*3/uL [place] # (Auto) 0.36 (0.3-0.8) 10*3/UL Eos # (Auto) 0.35 10*3/UL Baso # (Auto) 0.10 10*3/UL WBC Morphology Comment Normal morphology (NORM) Plt Morphology Comment Normal morphology (NORM) RBC Morph Comment Normal morphology (NORM) Sodium 132 L (135-145) meq/L Potassium 4.3 (3.8-5.2) meq/L Chloride 97 L (98-112) meq/L Carbon Dioxide 23 (23-33) meq/L Anion Gap 12 (5-20) BUN 19 (7-22) mg/dL Creatinine 1.1 (0.50-1.20) mg/dL Estimated GFR 51 (>60 ml/min/1.73m(2)) BUN/Creatinine Ratio 17.27 (6-20) Glucose 137 H (78-110) mg/dL Calculated Osmolality 277.0 (267-292) mOsm/kg Calcium 10.2 (8.7-10.7) mg/dL Magnesium 1.7 (1.6-2.4) mg/dL Total Bilirubin 1.1 (0.3-1.2) mg/dL AST 14 (8-39) IU/L ALT 25 (9-52) IU/L Alkaline Phosphatase 76 (38-126) IU/L Total Protein 7.8 (6.1-8.0) g/dL Albumin 4.4 (3.5-4.8) g/dL Globulin 3.4 (2.50-4.10) g/dL Albumin/Globulin Ratio 1.20 L (1.3-2.0) mg/g TSH 1.16 (0.2700-4.2000) uIU/mL Ur Collection Type Clean catch urine Urine Color Yellow Urine Clarity Clear (CLEAR) Urine pH 5.0 (5.0-8.5) Ur Specific [place] 1.010 (1.005-1.030) Urine Protein Negative (NEG) mg/dl Urine Glucose (UA) Negative (NEG) mg/dL Urine Ketones Negative (NEG) Urine Occult Blood Negative (NEG) Urine Nitrate Negative (NEG) Urine Bilirubin Negative (NEG) Urine Urobilinogen 0.2 (0.2) EU/dL Ur Leukocyte Esterase Negative (NEG) Ur Culture Indicated? Culture not set - Patient's Progress Pain Medication Addressed: POSITIVE: Yes Re-examine Time: 12:55 Status: POSITIVE: Improved MDM / ED Course: The patient was brought in via EMS with an IV in place having received morphine in route. She slept most of her ER visit. She is being discharged home wishing to be discharged. Findings: Please see is within normal limits, comprehensive metabolic panel is unremarkable. Assessment: Chronic abdominal pain, narcotic seeking behavior, and hypertension currently noncompliant with medications. Plan: Discharge home follow up with gastroenterology. - Consult Counseled: POSITIVE: Patient, RE: Lab Results, RE: Radiology Results, RE: DX, RE : Need for F/U Patient Care Time - Estimated PCT Patient Care Time (In Minutes): 30 Vital Signs - Recent Vital Signs Vital Signs: Vital Signs (Last 8 hours) Temp Pulse Resp BP Pulse Ox 11/16/16 09:00 96.3 F L 76 14 181/100 96 - VS Reviewed Vital Signs Reviewed: Yes Discharge Clinical Impression: Abdominal pain, chronic, epigastric, Drug-seeking behavior, Noncompliance w/ medication treatment due to intermit use of medication, HTN (hypertension) Discharge Disposition: Discharged to Home Condition: Stable Patient Instructions Given at Discharge: Chronic Abdominal Pain (ED), Hypertension (ED)
[2016-11-16 09:23] LABS: BASOPHILS % (AUTO) 1.6 % (0-1); EOSINOPHILS # (AUTO) 0.35 10*3/UL; EOSINOPHILS % (AUTO) 5.7 % (0-8); HEMATOCRIT 40.3 % (37.0-47.0); LYMPHOCYTES # (AUTO) 1.54 10*3/uL; MEAN CORPUSCULAR HGB CONC 34.7 g/dL (33-37); MEAN CORPUSCULAR VOLUME 92.2 FL (81-99); MEAN PLATELET VOLUME 10.6 FL (7.4-12.2); MONOCYTES # (AUTO) 0.36 10*3/UL (0.3-0.8); MONOCYTES % (AUTO) 5.9 % (5-15); NEUTROPHILS # (AUTO) 3.77 10*3/UL; NEUTROPHILS % (AUTO) 61.5 % (50-80); PLATELET MORPHOLOGY COMMENT NORMAL MORPHOLOGY (NORM); RBC MORPHOLOGY COMMENT NORMAL MORPHOLOGY (NORM); RED BLOOD COUNT 4.37 10^6/uL (4.20-5.40); WBC MORPHOLOGY COMMENT NORMAL MORPHOLOGY (NORM)
[2016-11-16 09:32] LABS: BUN/CREATININE RATIO 17.27 (6-20)
[2016-11-16 09:33] VITALS: RESP 14; TEMP 96.3
[2016-11-16 09:33] LABS: CALCIUM 10.2 mg/dL (8.7-10.7); MAGNESIUM 1.7 mg/dL (1.6-2.4); SERUM ALBUMIN 4.4 g/dL (3.5-4.8)
[2016-11-16 10:49] LABS: BILIRUBIN,URINE NEGATIVE (NEG); CLARITY,URINE CLEAR (CLEAR); COLOR,URINE YELLOW; GLUCOSE, URINE (UA) NEGATIVE (NEG); NITRATE,URINE NEGATIVE (NEG); OCCULT BLOOD,URINE NEGATIVE (NEG); UROBILINOGEN,URINE 0.2 EU/dL (0.2)
[2016-11-16 10:50] LABS: PROTEIN,URINE NEGATIVE (NEG); URINE SAMPLE TYPE CLEAN CATCH URINE
--- NOTE | 2016-11-16 16:36 | DI ---
XR ABDOMEN (KUB) FLAT 1VIEW,11/16/2016 9:54 AM: Clinical History: Abdominal pain Previous Exam: November 10, 2016 Findings: A single portable KUB is obtained, and demonstrates a nonobstructive bowel gas pattern. Degenerative changes of the spine are seen essentially unchanged from the prior exam. Patient is status post cholecystectomy. There is no evidence of pathologic calcification. Impression: Mild degenerative changes of the lumbar spine otherwise unremarkable.
== END 2016-11-16 13:44 | disposition home or self-care (01) ==
LOC: ER 09:05
DX: R10.13 Epigastric pain (principal); I10 Essential (primary) hypertension; Z76.5 Malingerer [conscious simulation]; Z91.14 Patient's other noncompliance with medication regimen
CPT/HCPCS: 74000; 80053; 81003; 83735; 84443; 85025; 90791; 96360; 96361; 99283

== ENCOUNTER 2016-11-18 18:35 | Emergency (ER) | payer OTHER ==
--- NOTE | 2016-11-18 18:46 | PDOC ---
Abdomen/Flank HPI - General Chief Complaint: Abdomen Pain Stated Complaint: ABD PAIN W/NAUSEA AND VOMITING Date Seen by Provider: 11/18/16 Time Seen by Provider: 18:40 Source: POSITIVE: Patient, EMS Exam Limitations: POSITIVE: No limitations Nurse's Notes Reviewed & Considered: Yes EMS Report Reviewed & Considered: Verbal - History of Present Illness Initial Comments: Patient returns today with abdominal pain in the epigastrium. This patient has been showing narcotic seeking behavior and has over 8 visits to the emergency room since October 19. She returns today with presentation of epigastric abdominal pain, moaning, writhing on the bed, complaining of nausea but no vomiting at this time. The [place] police have opened and investigation into this patient for narcotic seeking behavior and possible abuse of narcotics. There've been no fever chills or sweats, she does have abdominal pain with nausea and no vomiting. Although she was vomiting earlier. No other symptoms are present. Body Location Affected: REPORTS: Abdomen Timing: REPORTS: Unknown Duration: Unknown Severity: Severe Quality: REPORTS: "Pain" Abdominal Pain Onset Location: REPORTS: Epigastric Abdominal Pain Radiation: REPORTS: Epigastric Context: REPORTS: None Modifying Factors: improves with: Other (Narcotics) Associated Symptoms: REPORTS: Denies symptoms Similar Symptoms Previously: Yes Recent Care Received: REPORTS: Recently Seen, Treated by MD - Patient Home Medications Home Medications: Home Medications Lisinopril [Prinivil Tab] 40 mg PO DAILY #30 tab 06/28/16 Dicyclomine HCl [Bentyl] 20 mg PO Q8H PRN #10 tablet 08/28/16 Pantoprazole Sodium [Protonix] 40 mg PO BID #60 tablet. 08/28/16 Promethazine HCl [Phenergan] 25 mg PO Q6H PRN #15 tab 08/28/16 Ondansetron Odt [Zofran Odt] 8 mg PO DAILY PRN #10 tab.rapdis 09/30/16 Polyethylene Glycol 3350 [Miralax] 17 gm PO DAILY PRN #1 bottle 09/30/16 - Patient Allergies Allergies/Adverse Reactions: Allergies Allergy/AdvReac Type Severity Reaction Status Date / Time No Known Allergies Allergy Verified 11/18/16 18:44 Past Medical History - heen HEENT History: Hard of Hearing, Dental Disorders, Dentures/Partials Cardiovascular History: Hypertension Additional Cardiovasular History: DOES NOT TAKE HER BLOOD PRESSURE MEDS REGULARLY. Pt reports took bp medication this am. Respiratory History: Denies History Gastrointestinal History: Diverticulitis, Gallbladder Disease Additional Gastrointestinal History: LAST EPISODE 2010. PT HAS BEEN IN ER WITH ABDOMINAL PAIN, N/V FREQUENTLY OVER PAST 2 MONTHS. GB OUT 08/01/16 Genitourinary History: Denies History Endocrine History: Type 2 Diabetes (oral) Additional Endocrine History: HX OF NOT TAKING MEDS Musculoskeletal History: Denies History Prosthesis or Implant: No Neurological History: Denies History Blood Disorders: Denies History Psychiatric History: Denies History History of Sexually Transmitted Diseases: No Cancer History: Denies History History of MDRO: No History of Other Communicable Diseases: No Alcohol Use: Occasionally Substance Use Type: None Previous Surgical History: Yes Type / Date of Surgery: TUBAL LIGATION. Michela Anesthesia Reactions: No Malignant Hyperthermia: No Significant Family History: No pertinent family hx ROS - Limitations ROS Limitations: No Limitations Constitution: REPORTS: Denies Symptoms Cardiovascular: REPORTS: Denies Cardiac Symptoms Respiratory: REPORTS: Denies Resp Symptoms Neurological: REPORTS: Denies Neuro Symptoms Gastrointestinal: REPORTS: Abdominal Pain, Nausea Endocrine: REPORTS: Denies Symptoms Musculoskeletal: REPORTS: Denies MS Symptoms Genitourinary: REPORTS: Denies Symptoms Eyes: REPORTS: Denies Symptoms ENT: REPORTS: Denies Symptoms Skin: REPORTS: Denies Skin Symptoms Lympathic: REPORTS: Denies Lympathic Symptoms Immunologic: POSITIVE: Denies Symptoms Psychiatric: POSITIVE: Anxiety Abdominal/Flank Pain PE - General Appearance General Appearance: POSITIVE: Alert, No Evidence of Trauma, Severe Distress - HEENT HEENT: POSITIVE: Head Inspection Nml, Eyes Inspection Nml, Ears Inspection Nml, Nose Inspection Nml, PERRL, EOMI - Neck Neck: POSITIVE: Normal Inspection, No Apparent Injury - Respiratory Respiratory: POSITIVE: No Respiratory Distress, Breath Sounds Normal, Chest Non- Tender - Cardiovascular Cardiovascular: POSITIVE: Regular Rate and Rhythm, Heart Sounds Normal - Chest Chest: POSITIVE: Non Tender - Abdomen Abdomen: Soft: (All Quadrants), Normal Bowel Sounds: (All Quadrants), Tenderness Noted: (All Quadrants) (no tenderness with palpation by stethoscope) Additional Abdominal Details: Patient has no tenderness to palpation with stethoscope, and on command do not moan she is able to control her moaning and writhing. However, upon manual palpation of her abdomen she arrives moans and tries to push my hand away. It is noted that her abdomen is soft in all 4 quadrants with no hepatosplenomegaly appreciated, bowel sounds are normoactive, but tender to very light touch. - Skin Skin: POSITIVE: Intact, Normal For Race, Warm, Dry, No Rash - Extremities Extremity: Non-Tender: (All Extremities), Normal ROM: (All Extremities), Normal Inspection: (All Extremities) - Neurological Neurological: POSITIVE: Affect Apporpriate, Oriented X3 - Psychological Psychiatric: POSITIVE: Affect Appropriate, Anxious Abdomen Progress - Results Reviewed by me Lab Results Reviewed: Yes Lab Results:: Laboratory Results 11/18/16 Range/Units 18:55 WBC 6.20 (4.8-10.8) 10^3/uL RBC 4.35 (4.20-5.40) 10^6/uL Hgb 13.8 (12.0-16.0) g/dL Hct 39.8 (37.0-47.0) % MCV 91.5 (81-99) FL MCH 31.7 H (27-31) PG MCHC 34.7 (33-37) g/dL RDW Std Deviation 42.8 (39-50) fL RDW Coeff of Mohini 13.1 (11.5-14.5) % Plt Count 352 H (140-350) 10*3/uL MPV 10.2 (7.4-12.2) FL Immature Gran % (Auto) 0 (0-5) % Neut % (Auto) 71.6 (50-80) % Lymph % (Auto) 18.2 (10-50) % [place] % (Auto) 5.8 (5-15) % Eos % (Auto) 3.4 (0-8) % Baso % (Auto) 1.0 (0-1) % Immature Gran # (Auto) 0 10*3/UL Neut # (Auto) 4.44 10*3/UL Lymph # (Auto) 1.13 10*3/uL [place] # (Auto) 0.36 (0.3-0.8) 10*3/UL Eos # (Auto) 0.21 10*3/UL Baso # (Auto) 0.06 10*3/UL WBC Morphology Comment Normal morphology (NORM) Plt Morphology Comment Normal morphology (NORM) RBC Morph Comment Normal morphology (NORM) Sodium 136 (135-145) meq/L Potassium 3.7 L (3.8-5.2) meq/L Chloride 102 (98-112) meq/L Carbon Dioxide 22 L (23-33) meq/L Anion Gap 12 (5-20) BUN 17 (7-22) mg/dL Creatinine 1.1 (0.50-1.20) mg/dL Estimated GFR 51 (>60 ml/min/1.73m(2)) BUN/Creatinine Ratio 15.45 (6-20) Glucose 146 H (78-110) mg/dL Calculated Osmolality 286.0 (267-292) mOsm/kg Calcium 10.0 (8.7-10.7) mg/dL Total Bilirubin 1.5 H (0.3-1.2) mg/dL AST 14 (8-39) IU/L ALT 23 (9-52) IU/L Alkaline Phosphatase 70 (38-126) IU/L Total Protein 7.3 (6.1-8.0) g/dL Albumin 4.1 (3.5-4.8) g/dL Globulin 3.2 (2.50-4.10) g/dL Albumin/Globulin Ratio 1.20 L (1.3-2.0) mg/g - Patient's Progress Pain Medication Addressed: POSITIVE: No Re-examine Time: 19:25 Status: POSITIVE: Improved MDM / ED Course: Patient was examined, an IV started, blood drawn and sent to the lab for studies. Cause of the patient's repeated presentation here to the emergency department with identical symptoms no radiographic studies were obtained because of the risk of radiation. Patient received Benadryl and labetalol. Her blood pressures did improve to 200/120 and clonidine was then given. Findings: Compazine metabolic panel shows a slight elevation of her bilirubin 1.5 remainder the panel was unremarkable. CBC is within normal limits. Assessment: #1 abdominal pain that is chronic in nature, #2 Narcotic seeking behavior, #3 hypertension. Plan: Discharge home. - Consult Counseled: POSITIVE: Family, RE: Lab Results, RE: DX Patient Care Time - Estimated PCT Patient Care Time (In Minutes): 20 Vital Signs - VS Reviewed Vital Signs Reviewed: Yes Discharge Clinical Impression: Chronic generalized abdominal pain, HTN (hypertension), Noncompliance w/ medication treatment due to intermit use of medication, Drug-seeking behavior Discharge Disposition: Discharged to Home Condition: Stable Patient Instructions Given at Discharge: Acute Abdominal Pain (ED), Hypertension (ED) Follow Up With: LILIANA Shrestha [Primary Care Provider] -
[2016-11-18] MEDS ORDERED: LABETALOL 20 MG/4 ML (5 MG/1 ML) SYRINGE IVP ONE (18:47)
[2016-11-18] MEDS ORDERED: diphenhydrAMINE 50 MG/1 ML VIAL IVP ONE (18:47)
[2016-11-18 19:05] LABS: BASOPHILS # (AUTO) 0.06 10*3/UL; EOSINOPHILS # (AUTO) 0.21 10*3/UL; EOSINOPHILS % (AUTO) 3.4 % (0-8); HEMATOCRIT 39.8 % (37.0-47.0); HEMOGLOBIN 13.8 g/dL (12.0-16.0); LYMPHOCYTES # (AUTO) 1.13 10*3/uL; MEAN CORPUSCULAR HEMOGLOBIN 31.7 PG (27-31); MEAN CORPUSCULAR HGB CONC 34.7 g/dL (33-37); MEAN CORPUSCULAR VOLUME 91.5 FL (81-99); MEAN PLATELET VOLUME 10.2 FL (7.4-12.2); MONOCYTES # (AUTO) 0.36 10*3/UL (0.3-0.8); MONOCYTES % (AUTO) 5.8 % (5-15); NEUTROPHILS # (AUTO) 4.44 10*3/UL; NEUTROPHILS % (AUTO) 71.6 % (50-80); RED BLOOD COUNT 4.35 10^6/uL (4.20-5.40)
[2016-11-18 19:07] LABS: PLATELET MORPHOLOGY COMMENT NORMAL MORPHOLOGY (NORM); RBC MORPHOLOGY COMMENT NORMAL MORPHOLOGY (NORM); WBC MORPHOLOGY COMMENT NORMAL MORPHOLOGY (NORM)
[2016-11-18 19:12] LABS: BUN/CREATININE RATIO 15.45 (6-20); SERUM ALBUMIN 4.1 g/dL (3.5-4.8)
[2016-11-18] MEDS ORDERED: CloNIDine Tab 0.1 MG TABLET PO ONE (19:22)
[2016-11-18 19:57] VITALS: RESP 16
[2016-11-18 20:11] VITALS: TEMP 98.3
== END 2016-11-18 20:20 | disposition home or self-care (01) ==
LOC: ER 18:35
DX: R10.84 Generalized abdominal pain (principal); I10 Essential (primary) hypertension; Z76.5 Malingerer [conscious simulation]; Z91.14 Patient's other noncompliance with medication regimen
CPT/HCPCS: 80053; 85025; 96374; 96375; 99282; 99283; J1200

== ENCOUNTER → 2016-11-22 | Outpatient (CLI) | payer OTHER | LOC: MMPC 11:11 | PROVIDERS: ATTEND Surgery | DX: R10.13 Epigastric pain (principal); R11.2 Nausea with vomiting, unspecified; Z12.11 Encounter for screening for malignant neoplasm of colon; Z86.19 Personal history of other infectious and parasitic diseases | CPT/HCPCS: 99214; G0463 ==

== ENCOUNTER → 2016-11-24 | Outpatient (CLI) | payer OTHER | LOC: LAB 11:00 | PROVIDERS: ATTEND Surgery | DX: R10.84 Generalized abdominal pain (principal); R10.13 Epigastric pain; Z86.19 Personal history of other infectious and parasitic diseases | CPT/HCPCS: 87338 ==

== ENCOUNTER 2016-11-30 07:23 | Day surgery (SDC) | payer OTHER ==
[~2016-11-30 07:23] MED LIST: LIDOCAINE W/ SODIUM BICARB 0.5 ML SYR ONE; Lactated Ringers 1,000 ML PRIMARY IV ONE; MIDAZOLAM 5 MG/1 ML ONE; fentaNYL Inj 100 MCG/2 ML VIAL ONE
--- NOTE | 2016-11-30 08:48 | GEN.OPNOTE ---
Colonoscopy Procedure Note Surgery Date: 11/30/16 Preoperative Diagnosis: Abdominal pain. Colon cancer screening. Postoperative Diagnosis: Same. Procedure: Complete colonoscopy with multiple random biopsies. Surgeon: Victor M De La Paz MD Anesthesia Provider: Satish Garcia CRNA Anesthesia Type: MAC Indications: Patient is a 61-year-old female with a long-standing history of intermittent abdominal pain. She has had an exhaustive workup. She's had her gallbladder removed for biliary dyskinesia.. She had a history of H. pylori which was treated. Recent stool study showed she was antigen negative. She's been treated in the emergency room multiple times. She has been hospitalized multiple times. She's had multiple CAT scans. She had multiple labs. No etiology has ever been determined. She has never had a colonoscopy so we on her proceeding with one to rule out colonic pathology for her abdominal pain. Findings: Prep : [Good. Some retained stool. Good visualization of the colonic mucosa.] Cecum : [Normal] Ascending : [Normal] Transverse : [Normal] Sigmoid : [Normal] Rectum : [Normal] Digital Rectal Exam : [Normal] Terminal ileum:[Normal] A lubricated flexible colonoscope was inserted and passed to the blind end of the cecum. The terminal ileum was intubated. The mucosa was unremarkable. I was unable to reinsert the scope into the terminal ileum to do biopsies but again it appeared normal. The scope was withdrawn into the cecum. Air was aspirated as the scope was withdrawn. The entire colonoscopy was normal without polyp, tumor, neoplastic mass, infectious or inflammatory process. Random biopsies were taken from the right colon, transverse colon, sigmoid colon , and rectum. The scope was withdrawn completing the procedure. Patient tolerated the entire procedure well without complication. She was taken to outpatient surgery in stable condition. Follow-up will be in my office on an as-needed basis. We will call the biopsy results when available. If she has recurring abdominal pain the only thing I think we can offer is a gastroenterology referral for evaluation.
[2016-11-30 09:10] VITALS: RESP 14
[2016-11-30 10:48] VITALS: TEMP 97
== END 2016-11-30 10:07 ==
LOC: SDSC 07:23
PROVIDERS: ATTEND Surgery
DX: R10.13 Epigastric pain (principal); Z86.19 Personal history of other infectious and parasitic diseases; Z12.11 Encounter for screening for malignant neoplasm of colon
CPT/HCPCS: 45380; 87338; J2704; J3010; 00810; J2250; J7120

== ENCOUNTER 2016-12-22 08:05 | Emergency (ER) | payer OTHER ==
[2016-12-22 08:25] VITALS: RESP 24; TEMP 97.6
[2016-12-22] MEDS ORDERED: NORMAL SALINE 10 ML SYRINGE FLUSH IVP PRN (08:33)
[2016-12-22] MEDS ORDERED: Famotidine Inj 20 MG in Normal Saline Flush 10 ML IVP ONE (08:33)
[2016-12-22] MEDS ORDERED: Sodium Chloride 0.9% 1,000 ML PRIMARY IV ONE (08:33)
[2016-12-22] MEDS ORDERED: ONDANSETRON 4 MG/2 ML VIAL IVP ONE (08:33)
[2016-12-22 08:40] LABS: BASOPHILS # (AUTO) 0.09 10*3/UL; EOSINOPHILS # (AUTO) 0.19 10*3/UL; EOSINOPHILS % (AUTO) 2.2 % (0-8); HEMOGLOBIN 14.9 g/dL (12.0-16.0); LYMPHOCYTES # (AUTO) 1.05 10*3/uL; MEAN CORPUSCULAR HEMOGLOBIN 32.2 PG (27-31); MEAN CORPUSCULAR HGB CONC 34.7 g/dL (33-37); MEAN CORPUSCULAR VOLUME 92.9 FL (81-99); MEAN PLATELET VOLUME 11.1 FL (7.4-12.2); MONOCYTES # (AUTO) 0.31 10*3/UL (0.3-0.8); MONOCYTES % (AUTO) 3.6 % (5-15); NEUTROPHILS # (AUTO) 7.08 10*3/UL; NEUTROPHILS % (AUTO) 81.1 % (50-80); RED BLOOD COUNT 4.63 10^6/uL (4.20-5.40)
[2016-12-22 08:41] LABS: PLATELET MORPHOLOGY COMMENT NORMAL MORPHOLOGY (NORM); RBC MORPHOLOGY COMMENT NORMAL MORPHOLOGY (NORM); WBC MORPHOLOGY COMMENT NORMAL MORPHOLOGY (NORM)
--- NOTE | 2016-12-22 08:42 | PDOC ---
Abdomen/Flank HPI - General Chief Complaint: Abdomen Pain Stated Complaint: epigastric pain, n/v/d Date Seen by Provider: 12/22/16 Time Seen by Provider: 08:15 Source: POSITIVE: Patient, EMS Exam Limitations: POSITIVE: No limitations Nurse's Notes Reviewed & Considered: Yes EMS Report Reviewed & Considered: Verbal - History of Present Illness Initial Comments: The patient is a 61-year-old female who is brought to the emergency room by ambulance. Her chief complaint is abdominal pain. She states that she has had recurring episodes of abdominal pain ever since her cholecystectomy in July 2016. She has been seen in the emergency room several times with this complaint. On those occasions the patient is usually given narcotic analgesia and her symptoms resolved when she is discharged. She's had normal CT scans of the abdomen and pelvis since July. She had colonoscopy on 11/30/2016 which was normal. She also had upper endoscopy which was normal and was negative for Helicobacter pylori. Patient states onset of her present complaint began around 10 PM. She states she's had some associated vomiting and maybe some diarrhea. No fevers or chills. No melena, hematochezia, hematemesis, dysuria or hematuria. Her abdominal pain is poorly localized but appears to be more in the upper abdomen. Body Location Affected: REPORTS: Abdomen Timing: REPORTS: Constant Duration: <24 hours (10-11 hours) Severity: Moderate Quality: REPORTS: "Pain" Abdominal Pain Onset Location: REPORTS: Generalized abdomen (More upper abdomen than lower) Abdominal Pain Radiation: REPORTS: No radiation Context: REPORTS: None Modifying Factors: improves with: Vomiting Associated Symptoms: REPORTS: Nausea, Vomiting Similar Symptoms Previously: Yes (intermittent abdominal pain, she states since July 2016) Recent Care Received: REPORTS: Recently Seen, Treated by MD (Normal upper and lower endoscopies in November as above) Any Prior Injuries Related to Current Complaint?: No - Patient Home Medications Home Medications: Home Medications Pantoprazole Sodium [Protonix] 40 mg PO BID #60 tablet. 08/28/16 Promethazine HCl [Phenergan] 25 mg PO Q6H PRN #15 tab 08/28/16 Ondansetron Odt [Zofran Odt] 8 mg PO DAILY PRN #10 tab.rapdis 09/30/16 Polyethylene Glycol 3350 [Miralax] 17 gm PO DAILY PRN #1 bottle 09/30/16 Lisinopril 1 tab PO DAILY tab 11/22/16 - Patient Allergies Allergies/Adverse Reactions: Allergies Allergy/AdvReac Type Severity Reaction Status Date / Time No Known Allergies Allergy Verified 12/22/16 08:14 Past Medical History - heen HEENT History: Hard of Hearing, Dental Disorders, Dentures/Partials Cardiovascular History: Hypertension Additional Cardiovasular History: DOES NOT TAKE HER BLOOD PRESSURE MEDS REGULARLY. 11/29/16 PT STATES IS TAKING B/P MEDS REGULARLY NOW Respiratory History: Denies History Gastrointestinal History: GERD, Diverticulitis Additional Gastrointestinal History: LAST EPISODE 2010. PT HAS BEEN IN ER WITH ABDOMINAL PAIN, N/V FREQUENTLY OVER PAST 2 MONTHS. GB OUT 08/01/16 Genitourinary History: Denies History Endocrine History: Type 2 Diabetes (oral) Additional Endocrine History: HX OF DIABETES BUT LOST WEIGHT AND NOW IS NOT ON MEDICATION. Musculoskeletal History: Denies History Prosthesis or Implant: No Neurological History: Denies History Blood Disorders: Denies History Psychiatric History: Denies History Additional Psychiatric History: Pt denies hx of substance abuse, family reports pt has hx of "seeking pain meds". History of Sexually Transmitted Diseases: No Female Reproductive History: Denies History Obstetrical History: Denies History Cancer History: Denies History In Past Year Been Physically Harmed or Verbally Threatened: No History of MDRO: No History of Other Communicable Diseases: No Tobacco Use: Never Smoker Alcohol Use: None Substance Use Type: None Previous Surgical History: Yes Type / Date of Surgery: TUBAL LIGATION. Michela. CORONARY ANGIOGRAM. EGD. BILAT FEMUR ORIF 1969. RIGHT PELVIS FX Anesthesia Reactions: No Malignant Hyperthermia: No Significant Family History: No pertinent family hx Past Medical History Reviewed: Reviewed - No Changes ROS - Limitations ROS Limitations: No Limitations Constitution: REPORTS: Denies Symptoms Cardiovascular: REPORTS: Denies Cardiac Symptoms Respiratory: REPORTS: Denies Resp Symptoms Neurological: REPORTS: Denies Neuro Symptoms Gastrointestinal: REPORTS: Abdominal Pain, Nausea, Vomitting Endocrine: REPORTS: Denies Symptoms Musculoskeletal: REPORTS: Denies MS Symptoms Genitourinary: REPORTS: Denies Symptoms Eyes: REPORTS: Denies Symptoms ENT: REPORTS: Denies Symptoms Skin: REPORTS: Denies Skin Symptoms Lympathic: REPORTS: Denies Lympathic Symptoms Immunologic: POSITIVE: Denies Symptoms Psychiatric: POSITIVE: Anxiety Abdominal/Flank Pain PE - General Appearance General Appearance: POSITIVE: Alert, Cooperative, No Acute Distress, No Evidence of Trauma, Anxious (Asking for pain medications) - HEENT HEENT: POSITIVE: Head Inspection Nml, Eyes Inspection Nml, Ears Inspection Nml, Nose Inspection Nml, Oral/Dental Inspect. Nml, Pharynx Inspect. Nml, PERRL, EOMI - Neck Neck: POSITIVE: Normal Inspection, No Apparent Injury - Respiratory Respiratory: POSITIVE: No Respiratory Distress, Breath Sounds Normal, Chest Non- Tender - Cardiovascular Cardiovascular: POSITIVE: Regular Rate and Rhythm, Heart Sounds Normal, Equal Pulses, Strong Pulses Peripheral Pulses: Radial (R): 2+, Radial (L): 2+ - Abdomen Abdomen: Soft: (All Quadrants), Normal Bowel Sounds: (All Quadrants), No Splenomegaly: (All Quadrants), No Hepatomegaly: (All Quadrants), No Guarding: ( All Quadrants), No Rebound: (All Quadrants), No Palpable Pulse: (All Quadrants) , No Palpabale Mass: (All Quadrants), No Distention: (All Quadrants), No Rigidity: (All Quadrants), Tenderness Noted: (RUQ), (LUQ), (RLQ), (LLQ) Additional Abdominal Details: Abdominal examination shows bowel sounds be active. Patient complains of poorly localized discomfort on palpation of her abdomen everywhere, probably somewhat more upper abdomen than lower. No masses or organomegaly or rebound. - Back Back: POSITIVE: Normal Inspection. 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 Narcotic usage since 04/2016 where read through the [facility]. According to print out since April 2016 patient has received 10 prescriptions for narcotic medications from 6 different providers and quantities ranging from 10-40 tablets. Status: POSITIVE: Unchanged, Re-Examined Patient Care Time - Estimated PCT Patient Care Time (In Minutes): 30 Vital Signs - Recent Vital Signs Vital Signs: Vital Signs (Last 8 hours) Temp Pulse Resp BP Pulse Ox 12/22/16 08:05 97.6 F 88 24 194/124 96 - VS Reviewed Vital Signs Reviewed: Yes Discharge Clinical Impression: Nausea and vomiting, Abdominal pain, Chronic narcotic dependence, Chronic generalized abdominal pain, Chronic narcotic dependence Condition: Stable Care Transferred To: care transferred to , emergency room physician, at 0850, who has
[2016-12-22 08:46] LABS: BUN/CREATININE RATIO 17.69 (6-20); CALCIUM 10.8 mg/dL (8.7-10.7); SERUM ALBUMIN 4.6 g/dL (3.5-4.8)
--- NOTE | 2016-12-22 09:04 | PDOC ---
Transfer of Care - Care Accepted Time Care Transferred: 08:59 Report from Transferring Physician Received: Yes MDM / ED Course: Patient was brought into the emergency department via EMS for evaluation of abdominal pain and retching. In route patient received 50 mg of Benadryl. Here in the emergency room she is received Pepcid, normal saline, a beta rachel , Catapres, and Zofran. This patient is well-known to the emergency room and exhibits narcotic seeking behavior. She admits to having stuck her finger down her throat this morning and appears that she continues to do so here in the emergency room. SHe continues to retch and complain of abdominal pain. She has been told she will receive no narcotics. In addition her blood pressure is elevated and she continues to be noncompliant with her antihypertensive medications. Home Medications: Home Medications Pantoprazole Sodium [Protonix] 40 mg PO BID #60 tablet. 08/28/16 Promethazine HCl [Phenergan] 25 mg PO Q6H PRN #15 tab 08/28/16 Ondansetron Odt [Zofran Odt] 8 mg PO DAILY PRN #10 tab.rapdis 09/30/16 Polyethylene Glycol 3350 [Miralax] 17 gm PO DAILY PRN #1 bottle 09/30/16 Lisinopril 1 tab PO DAILY tab 11/22/16 Allergies/Adverse Reactions: Allergies No Known Allergies Allergy (Verified 12/22/16 08:14) Vital Signs Reviewed: Yes Nurse's Notes Reviewed & Considered: Yes - Pending Patient Care Items Pending Patient Care Items: POSITIVE: Labs, X-ray Results - Expected Patient Outcome Tentative Impression of Patient: Complaints of abdominal pain with retching. Exhibits narcotic seeking behavior. Expected Disposition: POSITIVE: Home - Re-Evaluation of Patient Re-Examine Time:: 09:42 Disposition of Patient: POSITIVE: Discharged Counseled: POSITIVE: Patient, RE: Lab Results, RE: Radiology Results, RE: DX Pending Test Results Documented: Yes Clinical Impression Documented: Yes (complaints of abdominal pain, retching, hypertension) - Results Reviewed Lab Results Reviewed by Me: Yes Lab Results: Laboratory Results 12/22/16 12/22/16 Range/Units 07:40 09:15 WBC 8.73 (4.8-10.8) 10^3/uL RBC 4.63 (4.20-5.40) 10^6/uL Hgb 14.9 (12.0-16.0) g/dL Hct 43.0 (37.0-47.0) % MCV 92.9 (81-99) FL MCH 32.2 H (27-31) PG MCHC 34.7 (33-37) g/dL RDW Std Deviation 43.2 (39-50) fL RDW Coeff of Mohini 13.0 (11.5-14.5) % Plt Count 327 (140-350) 10*3/uL MPV 11.1 (7.4-12.2) FL Immature Gran % (Auto) 0.1 (0-5) % Neut % (Auto) 81.1 H (50-80) % Lymph % (Auto) 12.0 (10-50) % Grayson % (Auto) 3.6 L (5-15) % Eos % (Auto) 2.2 (0-8) % Baso % (Auto) 1.0 (0-1) % Immature Gran # (Auto) 0.01 10*3/UL Neut # (Auto) 7.08 10*3/UL Lymph # (Auto) 1.05 10*3/uL Grayson # (Auto) 0.31 (0.3-0.8) 10*3/UL Eos # (Auto) 0.19 10*3/UL Baso # (Auto) 0.09 10*3/UL WBC Morphology Comment Normal morphology (NORM) Plt Morphology Comment Normal morphology (NORM) RBC Morph Comment Normal morphology (NORM) Sodium 139 (135-145) meq/L Potassium 4.2 (3.8-5.2) meq/L Chloride 104 (98-112) meq/L Carbon Dioxide 20 L (23-33) meq/L Anion Gap 15 (5-20) BUN 23 H (7-22) mg/dL Creatinine 1.3 H (0.50-1.20) mg/dL Estimated GFR 42 (>60 ml/min/1.73m(2)) BUN/Creatinine Ratio 17.69 (6-20) Glucose 200 H (78-110) mg/dL Calculated Osmolality 297.0 H (267-292) mOsm/kg Calcium 10.8 H (8.7-10.7) mg/dL Total Bilirubin 1.0 (0.3-1.2) mg/dL AST 28 (8-39) IU/L ALT 28 (9-52) IU/L Alkaline Phosphatase 105 (38-126) IU/L Total Protein 8.6 H (6.1-8.0) g/dL Albumin 4.6 (3.5-4.8) g/dL Globulin 4.0 (2.50-4.10) g/dL Albumin/Globulin Ratio 1.10 L (1.3-2.0) mg/g Amylase 58 (30-110) U/L Lipase 114 (23-300) IU/L Ur Collection Type Cath specimen Urine Color Yellow Urine Clarity Cc (CLEAR) Urine pH 5.0 (5.0-8.5) Ur Specific Aylett 1.025 (1.005-1.030) U Specif Grav (Refrac) 1.025 Urine Protein 30 (NEG) mg/dl Urine Glucose (UA) 100 (NEG) mg/dL Urine Ketones Trace (NEG) Urine Occult Blood Trace-intact H (NEG) Urine Nitrate Negative (NEG) Urine Bilirubin Negative (NEG) Urine Urobilinogen 0.2 (0.2) EU/dL Ur Leukocyte Esterase Negative (NEG) Urine RBC 0-2 (NONE) /hpf Urine WBC 0-2 (NONE) Ur Squamous Epith Cells Few (NONE) Ur Renal Epithelial Cell None (NONE) Urine Crystals Few Urine Bacteria None (NONE) Urine Casts Rare (NONE) Urine Mucus Few (NONE) Urine Trichomonas None (NONE) Urine Yeast None (NONE) Ur Culture Indicated? Culture not set Urine Opiates Screen Negative (NEG) Ur Buprenorphine Negative (NEG) Ur Oxycodone Screen Negative (NEG) Urine Methadone Screen Negative (NEG) Ur Propoxyphene Screen Negative (NEG) Barbiturate Screen Negative (NEG) U Tricyclic Antidepress Negative (NEG) Phencyclidine Screen Negative (NEG) Amphetamines Screen Negative (NEG) U Methamphetamines Scrn Negative (NEG) Benzodiazepines Screen Negative (NEG) Cocaine Screen Negative (NEG) U Marijuana (THC) Screen Negative (NEG) - Consult Recommendations:: Patient needs to be on a pain contract with her primary care physician and limit her obtaining narcotics from only one doctor. Secondly she needs to take her antihypertensive as prescribed. Thirdly she may benefit from psychological counseling. Fourth, she should seek consultation with a project engineer. Patient Care Time - Estimated PCT Patient Care Time (In Minutes): 30 Vital Signs - Recent Vital Signs Vital Signs: Vital Signs (Last 8 hours) Temp Pulse Resp BP Pulse Ox 12/22/16 10:26 91 24 194/97 98 12/22/16 10:15 97 24 216/118 97 12/22/16 10:06 97 24 216/105 97 12/22/16 08:05 97.6 F 88 24 194/124 96 - VS Reviewed Vital Signs Reviewed: Yes Discharge Clinical Impression: Nausea and vomiting, Abdominal pain, Chronic narcotic dependence, Chronic generalized abdominal pain Discharge Disposition: Discharged to Home Condition: Stable Patient Instructions Given at Discharge: Acute Nausea and Vomiting (ED), Acute Abdominal Pain (ED), Hypertension (ED) Additional Instructions: 1 follow-up with primary care physician in order to establish a pain contract #2 follow-up with primary care physician for hypertension #3 follow up with gastroenterology for further evaluation of abdominal pain of unknown etiology. #4 follow-up with counselor for psychiatric counseling. Follow Up With: NONE,NONE [Primary Care Provider] -
--- NOTE | 2016-12-22 09:26 | DI ---
XR ABDOMEN ACUTE 2/ABD 1/CXR,12/22/2016 8:58 AM: Clinical History: Abdominal pain Previous Exam: November 16, 2016 Findings: A routine acute abdominal series is performed, and demonstrates clear lungs. The cardiomediastinum an d bony thorax are unremarkable. Patient is status post cholecystectomy. Degenerative changes of lumbar spine are seen which are stable. A nonobstructive bowel gas pattern is seen. There is no subdiaphragmatic free air and no pathologic c alcifications. Impression: No acute disease.
[2016-12-22] MEDS ORDERED: Belladon/PHENobarbital Elixir 10 ML, Lidocaine Viscous Liquid 2% 15 ML, Mag Hyd/Al Hyd/... PO ONE ×3 (09:31)
[2016-12-22 09:33] LABS: BILIRUBIN,URINE NEGATIVE (NEG); COLOR,URINE YELLOW; GLUCOSE, URINE (UA) 100 mg/dL (NEG); NITRATE,URINE NEGATIVE (NEG); OCCULT BLOOD,URINE Trace-intact (NEG); PROTEIN,URINE 30 mg/dl (NEG); UROBILINOGEN,URINE 0.2 EU/dL (0.2)
[2016-12-22 09:40] LABS: CLARITY,URINE CC (CLEAR)
[2016-12-22 09:41] LABS: AMPHETAMINE SCREEN NEGATIVE (NEG); CANNABINOID SCREEN,URINE NEGATIVE (NEG); COCAINE SCREEN NEGATIVE (NEG); METHADONE URINE SCREEN NEGATIVE (NEG); METHAMPHETAMINES SCREEN,URINE NEGATIVE (NEG); OPIATE SCREEN,URINE NEGATIVE (NEG); URINE SAMPLE TYPE CATH SPECIMEN; URINE SPECIFIC GRAVITY - MAN 1.025
[2016-12-22 09:45] LABS: URINE SAMPLE TYPE CATH SPECIMEN
[2016-12-22 09:46] LABS: RBC,URINE 0-2 /hpf; SQUAMOUS EPITHELIAL CELL,UR FEW; URINE CASTS RARE; URINE CRYSTALS FEW; WBC,URINE 0-2
[2016-12-22] MEDS ORDERED: CloNIDine Tab 0.1 MG TABLET PO ONE ×3 (09:55→10:16)
[2016-12-22] MEDS ORDERED: LABETALOL 20 MG/4 ML (5 MG/1 ML) SYRINGE IVP ONE (10:16)
[2016-12-22] MEDS ORDERED: LABETALOL 20 MG/4 ML (5 MG/1 ML) SYRINGE ONE (10:17)
== END 2016-12-22 11:10 | disposition home or self-care (01) ==
LOC: ER 08:05
DX: R10.84 Generalized abdominal pain (principal); R11.2 Nausea with vomiting, unspecified; F11.20 Opioid dependence, uncomplicated
CPT/HCPCS: 74022; 80053; 80305; 81001; 81003; 82150; 83690; 85025; 96361; 96374; 96375; 99284; J7030